=== PATIENT | female | born 1985 | race Caucasian/White ===

== ENCOUNTER 2017-04-08 22:24 | Emergency (ER) | payer MEDICAID ==
[2017-04-08 22:34] VITALS: BP 118/75
--- NOTE | 2017-04-08 23:23 | EDM.PDOC ---
ED HPI GENERAL MEDICAL PROBLEM - General Chief Complaint: Flank Pain Stated Complaint: POSS KIDNEY INFECTION Time Seen by Provider: 04/08/17 23:10 Source of Information: Reports: Patient, RN Notes Reviewed History Limitations: Reports: No Limitations - History of Present Illness INITIAL COMMENTS - FREE TEXT/NARRATIVE: The patient states that she has had dysuria, urinary urgency, and urinary frequency for the past week, and low back pain for about 2 hours. No recent fever, vomiting, or diarrhea, although she has had nausea and constipation. He states that she has had similar symptoms the past, due to a UTI. She states that she has been taking [id number] Azo for the past 2 days, without relief. The patient does not have a PCP. Flank Pain Score (Numeric/FACES): 8 - Related Data Allergies Allergy/AdvReac Type Severity Reaction Status Date / Time No Known Allergies Allergy Verified 01/22/16 08:59 Home Meds: Home Meds Levofloxacin [Levaquin] 250 mg PO Q24H #4 tablet 04/08/17 [Rx] Past Medical History HEENT History: Reports: Allergic Rhinitis Musculoskeletal History: Reports: Fracture (right femur) - Past Surgical History HEENT Surgical History: Reports: Adenoidectomy, Oral Surgery ([place] tooth extraction), Tonsillectomy Female Surgical History: Reports: D&C (x 4), Tubal Ligation Musculoskeletal Surgical History: Reports: ORIF (right femur) Social & Family History - Family History Family Medical History: Noncontributory - Tobacco Use Smoking Status *Q: Current Every Day Smoker Years of Tobacco use: 16 Packs/Tins Daily: 1 - Caffeine Use Caffeine Use: Reports: None - Alcohol Use Alcohol Use History: Yes Alcohol Use Frequency: Socially - Recreational Drug Use Recreational Drug Use: No - Living Situation & Occupation Living situation: Reports: , with Significant Other (Boyfriend), with Family (3 kids) 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) ED ROS GENERAL - Review of Systems Review Of Systems: See Below Constitutional: Reports: No Symptoms HEENT: Reports: Other (Recent hayfever symptoms) Respiratory: Reports: No Symptoms Cardiovascular: Reports: No Symptoms Endocrine: Reports: No Symptoms GI/Abdominal: Reports: No Symptoms : Reports: Dysuria (as per the HPI), Flank Pain (as per the HPI), Frequency ( as per the HPI), Urgency (as per the HPI) Musculoskeletal: Reports: No Symptoms Skin: Reports: No Symptoms Neurological: Reports: No Symptoms Psychiatric: Reports: No Symptoms Hematologic/Lymphatic: Reports: No Symptoms Immunologic: Reports: No Symptoms ED EXAM, RENAL/ - Physical Exam Exam: See Below Exam Limited By: No Limitations General Appearance: Alert, WD/WN, No Apparent Distress Eye Exam: Bilateral Eye: Normal Inspection Ears: Normal External Exam, Hearing Grossly Normal Nose: Normal Inspection, No Blood Throat/Mouth: Normal Inspection, Normal Lips, Normal Voice, No Airway Compromise Head: Atraumatic, Normocephalic Neck: Normal Inspection, Full Range of Motion Respiratory/Chest: No Respiratory Distress, Lungs Clear, Normal Breath Sounds, No Accessory Muscle Use Cardiovascular: Normal Peripheral Pulses, Regular Rate, Rhythm, No Gallop, No JVD, No Murmur, No Rub GI/Abdominal: Normal Bowel Sounds, Soft, Non-Tender, No Organomegaly, No Distention, No Abnormal Bruit, No Mass (Female) Exam: Deferred Rectal (Female) Exam: Deferred Back Exam: Normal Inspection, Full Range of Motion, CVA Tenderness (L) (mild), CVA Tenderness (R) (mild) Extremities: Normal Inspection, Normal Range of Motion, No Pedal Edema, Normal Capillary Refill Neurological: Alert, Oriented, Normal Cognition, No Motor/Sensory Deficits Psychiatric: Normal Affect Skin Exam: Warm, Dry, Intact, Normal Color, No Rash Lymphatic: No Adenopathy Course - Vital Signs Last Recorded V/S: Last Vital Signs Temp 36.6 C 04/08/17 22:31 Pulse 89 04/08/17 22:31 Resp 16 04/08/17 22:31 BP 118/75 04/08/17 22:31 Pulse Ox 96 04/08/17 22:31 - Orders/Labs/Meds Orders: Active Orders 24 hr Category Date Time Status CULTURE URINE [RM] Stat Lab 04/08/17 23:10 Received Labs: Laboratory Tests 04/08/17 Range/Units 22:45 Urine Color Cinda H (Yellow) Urine Appearance Turbid H (Clear) Urine pH 6.0 (5.0-8.0) Ur Specific [place] > or = 1.030 (1.005-1.030) Urine Protein 3+ H (Negative) Urine Glucose (UA) Negative (Negative) Urine Ketones Negative (Negative) Urine Occult Blood 3+ H (Negative) Urine Nitrite Positive H (Negative) Urine Bilirubin 1+ H (Negative) Urine Urobilinogen 1.0 (0.2-1.0) Ur Leukocyte Esterase 1+ H (Negative) Urine RBC 10-20 H (0-5) /hpf Urine WBC 50-75 H (0-5) /hpf Urine WBC Clumps Few (NOT SEEN) /hpf Ur Epithelial Cells 0-5 (0-5) /hpf Urine Bacteria Moderate H (FEW) /hpf Urine Mucus Few (FEW) /hpf Meds: Medications Discontinued Medications Generic Name Dose Route Start Last Admin Trade Name Freq PRN Reason Stop Dose Admin Levofloxacin 500 mg 04/08/17 23:37 04/08/17 23:50 Levaquin PO 04/08/17 23:38 500 mg ONETIME STA Administration - Re-Assessments/Exams Free Text/Narrative Re-Assessment/Exam: 04/08/17 23:39 The patient's urinalysis is consistent with a urinary tract infection. I have ordered a urine culture. While the patient does not have a fever, nausea, or vomiting, she does have flank pain and mild bilateral CVA tenderness, consistent with early pyelonephritis. Fluoroquinolones are the only oral antimicrobial recommended for the outpatient empirical treatment of acute uncomplicated pyelonephritis. I will start patient on oral Levaquin. Departure - Departure Time of Disposition: 23:47 Disposition: Home, Self-Care 01 Condition: Good Clinical Impression: Pyelonephritis - Discharge Information Prescriptions: Levofloxacin [Levaquin] 250 mg PO Q24H #4 tablet Instructions: Pyelonephritis, Adult, [id number] Referrals: PCP,None [Primary Care Provider] - Denia Espinoza PA-C [Physician Information Security Director] - Forms: ED Department Discharge Additional Instructions: You were seen in the emergency room for urinary burning, urgency, and frequency , along with low back pain. Workup in the ER included a urinalysis and urine culture. Your urine is consistent with a urinary tract infection. Because you have pain and tenderness in your back, you may have early pyelonephritis, an infection of the kidneys. You have been started on the antibiotic Levaquin. Take one tablet each evening, as prescribed. Finish the entire prescription unless told otherwise by a doctor. Stay adequately hydrated. You may take [id number] Azo, as directed on the label, to help with your urinary symptoms. Follow-up with Denia Espinoza in the clinic on 04/11/2017, for urine culture results, to make sure that you are on the right antibiotic. If any other problems, please do not hesitate to return to the ER. - My Orders Last 24 Hours: My Active Orders 04/08/17 23:10 CULTURE URINE [RM] Stat - Assessment/Plan Last 24 Hours: My Active Orders 04/08/17 23:10 CULTURE URINE [RM] Stat
[2017-04-08] MEDS ORDERED: Levofloxacin 500 MG Tab PO STA (23:37)
== END 2017-04-09 | disposition home or self-care (01) ==
LOC: JD.ED 22:24
DX: N12 Tubulo-interstitial nephritis, not specified as acute or chronic (principal); F17.210 Nicotine dependence, cigarettes, uncomplicated; Z98.890 Other specified postprocedural states; Z98.51 Tubal ligation status
CPT/HCPCS: 81001; 87086; 87088; 87186; 99284; A9270; 99283

== ENCOUNTER 2017-04-09 21:32 | Emergency (ER) | payer MEDICAID ==
[2017-04-09 21:43] VITALS: BP 101/68
[2017-04-09] MEDS ORDERED: Acetaminophen/HYDROcodone 325-5 MG Tab PO ONE (22:03)
--- NOTE | 2017-04-09 22:06 | EDM.PDOC ---
ED HPI GENERAL MEDICAL PROBLEM - General Chief Complaint: Genitourinary Problem Stated Complaint: SEVERE LOWER BACK PAIN Time Seen by Provider: 04/09/17 21:44 Source of Information: Reports: Patient, Family (), RN Notes Reviewed History Limitations: Reports: No Limitations - History of Present Illness INITIAL COMMENTS - FREE TEXT/NARRATIVE: The patient was seen by me in this ED last night with a complaint of dysuria, urinary urgency, and urinary frequency for the week prior, as well as low back pain for about 2 hours, at that time. She had not had any fever, vomiting, or diarrhea, although she did report nausea and constipation. Workup in the ER included a urinalysis, consistent with a UTI, and a urine culture was sent. Due to her flank pain and mild bilateral CVA tenderness, she was diagnosed with early pyelonephritis and started on oral Levaquin 500 mg. She was then discharged home with a prescription for Levaquin 250 mg that she was supposed to start tonight, although she reports that she has not. She was to follow-up with Denia Espinoza in the clinic. She now returns complaining of severe low back pain, worse on the right than the left. No fever or vomiting. The patient's states that he has to carry her to the bathroom, because she is in too much pain to go herself. Lower Back Pain Score (Numeric/FACES): 10 - Related Data Allergies Allergy/AdvReac Type Severity Reaction Status Date / Time No Known Allergies Allergy Verified 04/09/17 21:43 Home Meds: Home Meds Levofloxacin [Levaquin] 250 mg PO Q24H #4 tablet 04/08/17 [Rx] Past Medical History HEENT History: Reports: Allergic Rhinitis Musculoskeletal History: Reports: Fracture (right femur) - Past Surgical History HEENT Surgical History: Reports: Adenoidectomy, Oral Surgery ([place] teeth extraction), Tonsillectomy Female Surgical History: Reports: D&C (x 4), Tubal Ligation Musculoskeletal Surgical History: Reports: ORIF (right femur) Social & Family History - Family History Family Medical History: Noncontributory - Tobacco Use Smoking Status *Q: Current Every Day Smoker Years of Tobacco use: 16 Packs/Tins Daily: 1 - Caffeine Use Caffeine Use: Reports: None - Alcohol Use Alcohol Use History: Yes Days Per Week of Alcohol Use: 0 Alcohol Use Frequency: Socially - Recreational Drug Use Recreational Drug Use: No - Living Situation & Occupation Living situation: Reports: , with Significant Other (Boyfriend), with Family (3 kids) 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) ED ROS GENERAL - Review of Systems Review Of Systems: See Below Constitutional: Reports: No Symptoms HEENT: Reports: No Symptoms Respiratory: Reports: No Symptoms Cardiovascular: Reports: No Symptoms Endocrine: Reports: No Symptoms GI/Abdominal: Reports: No Symptoms : Reports: No Symptoms Musculoskeletal: Reports: No Symptoms Skin: Reports: No Symptoms Neurological: Reports: No Symptoms Psychiatric: Reports: No Symptoms Hematologic/Lymphatic: Reports: No Symptoms Immunologic: Reports: No Symptoms ED EXAM, RENAL/ - Physical Exam Exam: See Below Exam Limited By: No Limitations General Appearance: Alert, WD/WN, Mild Distress (appears uncomfortable) Eye Exam: Bilateral Eye: Normal Inspection Ears: Normal External Exam, Hearing Grossly Normal Nose: Normal Inspection, No Blood Throat/Mouth: Normal Inspection, Normal Lips, Normal Voice, No Airway Compromise Head: Atraumatic, Normocephalic Neck: Normal Inspection, Full Range of Motion Respiratory/Chest: No Respiratory Distress, Lungs Clear, Normal Breath Sounds, No Accessory Muscle Use Cardiovascular: Normal Peripheral Pulses, Regular Rate, Rhythm, No Gallop, No JVD, No Murmur, No Rub GI/Abdominal: Normal Bowel Sounds, Soft, Non-Tender, No Organomegaly, No Distention, No Abnormal Bruit, No Mass (Female) Exam: Deferred Rectal (Female) Exam: Deferred Back Exam: Normal Inspection, Full Range of Motion, CVA Tenderness (L), CVA Tenderness (R) Extremities: Normal Inspection, Normal Range of Motion, No Pedal Edema, Normal Capillary Refill Neurological: Alert, Oriented, Normal Cognition, No Motor/Sensory Deficits Psychiatric: Normal Affect Skin Exam: Warm, Dry, Intact, Normal Color, No Rash Lymphatic: No Adenopathy Course - Vital Signs Last Recorded V/S: Last Vital Signs Temp 36.9 C 04/09/17 21:40 Pulse 84 04/09/17 21:40 Resp 18 04/09/17 21:40 BP 101/68 04/09/17 21:40 Pulse Ox 98 04/09/17 21:40 - Orders/Labs/Meds Labs: Laboratory Tests 04/09/17 Range/Units 22:20 Urine Color Yellow (Yellow) Urine Appearance Clear (Clear) Urine pH 6.0 (5.0-8.0) Ur Specific [place] > or = 1.030 (1.005-1.030) Urine Protein Negative (Negative) Urine Glucose (UA) Negative (Negative) Urine Ketones 1+ H (Negative) Urine Occult Blood 2+ H (Negative) Urine Nitrite Negative (Negative) Urine Bilirubin Negative (Negative) Urine Urobilinogen 0.2 (0.2-1.0) Ur Leukocyte Esterase Negative (Negative) Urine RBC 5-10 H (0-5) /hpf Urine WBC 0-5 (0-5) /hpf Ur Epithelial Cells 5-10 H (0-5) /hpf Urine Bacteria Many H (FEW) /hpf Urine Mucus Many H (FEW) /hpf Meds: Medications Discontinued Medications Generic Name Dose Route Start Last Admin Trade Name Freq PRN Reason Stop Dose Admin Hydrocodone Bitart/Acetaminophen 2 tab 04/09/17 22:03 04/09/17 22:09 [place] 325-5 Mg PO 04/09/17 22:04 2 tab ONETIME ONE Administration - Re-Assessments/Exams Free Text/Narrative Re-Assessment/Exam: 04/09/17 22:04 The patient's urine culture from last night is growing gram-negative rods, but the ID and stability are still pending. I have ordered a repeat urinalysis; if the Levaquin is effective, the dose she received last night should essentially sterilize her urine, although able take several days to eradicate the infection itself. If prabhakar's urinalysis looks largely unchanged from last nights, that would be evidence that the Levaquin is ineffective, and we would need to switch her to something else. 04/09/17 23:05 Prabhakar's urinalysis demonstrates significant improvement from last night. Her urine is now yellow instead of tori, clear instead of turbid. The previous 3+ protein is now negative. The previous 3+ occult blood is now 2+. The previously positive nitrite is now negative. The previously 1+ leukocyte Estrace is now negative. The urine RBCs have decreased from 10-20 to 5-10. The previous 50-75 WBCs are now 0-5. The urine bacteria have increased from moderate to many. Overall, I believe this indicates efficacy of the Levaquin, and I am not recommending any change at this time. I ordered 2 tablets of [place], but for discharge purposes, I believe ibuprofen would be appropriate. Departure - Departure Time of Disposition: 23:11 Disposition: Home, Self-Care 01 Condition: Good Clinical Impression: Pyelonephritis - Discharge Information Referrals: PCP,None [Primary Care Provider] - Denia Espinoza PA-C [Physician Time Study Clerk] - Forms: ED Department Discharge Additional Instructions: You were seen in the emergency room for lower back pain associated with your previously diagnosed pyelonephritis. Workup in the ER included a repeat urinalysis, which shows significant improvement, indicating that you are on the correct antibiotic. We recommend that you continue to take the previously prescribed Levaquin, one tablet each evening, starting tonight. As before, finish the entire prescription unless told otherwise by a doctor. You may take mdyn-biw-xharbuh Azo, as directed on the label, to help with your urinary symptoms. Take giwe-wct-[id number] ibuprofen 2-3 tablets (400-600 mg) every 8 hours, with food, as needed for discomfort. Stay adequately hydrated. Follow-up with Denia Espinoza in the clinic this coming 04/11/2017, to check on the urine culture results, to confirm that you are on the correct antibiotic. If any other problems, please do not hesitate to return to the ER.
== END 2017-04-09 23:20 | disposition home or self-care (01) ==
LOC: JD.ED 21:32
DX: N12 Tubulo-interstitial nephritis, not specified as acute or chronic (principal); F17.210 Nicotine dependence, cigarettes, uncomplicated; Z98.890 Other specified postprocedural states; Z98.51 Tubal ligation status
CPT/HCPCS: 81001; 99284; A9270; 99283

== ENCOUNTER 2017-04-23 00:10 | Emergency (ER) | payer MEDICAID ==
[2017-04-23 00:20] VITALS: BP 124/60
[2017-04-23] MEDS ORDERED: Acetaminophen/HYDROcodone 325-5 MG Tab PO ONE (00:57)
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
== END 2017-04-23 01:14 | disposition home or self-care (01) ==
LOC: JD.ED 00:10
DX: S40.012A Contusion of left shoulder, initial encounter (principal); S50.01XA Contusion of right elbow, initial encounter; S70.12XA Contusion of left thigh, initial encounter; S70.11XA Contusion of right thigh, initial encounter; S10.93XA Contusion of unspecified part of neck, initial encounter; F17.210 Nicotine dependence, cigarettes, uncomplicated; Z98.51 Tubal ligation status; Z98.890 Other specified postprocedural states; Y04.0XXA Assault by unarmed brawl or fight, initial encounter
CPT/HCPCS: 99284; A9270; 99283

== ENCOUNTER 2018-02-20 18:14 | Emergency (ER) | payer MEDICAID ==
[2018-02-20 18:32] VITALS: BP 106/67
[2018-02-20] MEDS ORDERED: Ondansetron 4 MG/2 ML SDV IVPUSH ONE (18:38)
[2018-02-20] MEDS ORDERED: Sodium Chloride 0.9% 10 ML Syringe FLUSH PRN (18:38)
[2018-02-20] MEDS ORDERED: Ketorolac 30 MG/ML SDV IVPUSH ONE (18:39)
[2018-02-20] MEDS ORDERED: Sodium Chloride 0.9% 1,000 ML IV SCH (18:45)
--- NOTE | 2018-02-20 19:27 | EDM.PDOC ---
ED HPI GENERAL MEDICAL PROBLEM - General Chief Complaint: Genitourinary Problem Stated Complaint: KIDNEY ISSUES-SENT FROM WALK IN Time Seen by Provider: 02/20/18 18:35 Source of Information: Reports: Patient History Limitations: Reports: No Limitations - History of Present Illness INITIAL COMMENTS - FREE TEXT/NARRATIVE: The patient presents with bilateral low back pain, dysuria and frequency. This all started yesterday. She has no fever, chills, cough, chest pain or shortness of breath. She has some pain that raps around to her abdomen. She has a history of UTIs, pyelonephritis and kidney stones. She had a tubel ligation. She did not fall and she has no numbness or weakness in her legs. Onset: Gradual Duration: Day(s): (2) Location: Reports: Back Quality: Reports: Sharp Severity: Severe Improves with: Reports: None Worsens with: Reports: None Associated Symptoms: Denies: Chest Pain, Cough, Fever/Chills, Headaches, Nausea/ Vomiting, Shortness of Breath Lower Back Pain Score (Numeric/FACES): 8 - Related Data Allergies Allergy/AdvReac Type Severity Reaction Status Date / Time No Known Allergies Allergy Verified 02/20/18 18:24 Home Meds: Home Meds Cyclobenzaprine [Flexeril] 10 mg PO TID PRN #20 tab 02/20/18 [Rx] Escitalopram [Lexapro] 20 mg PO DAILY 02/20/18 [History] Hydrocodone/Acetaminophen [Hydrocodon-Acetaminophen 5-325] 1 - 2 each PO Q6HR PRN #20 tablet 02/20/18 [Rx] LORazepam [Ativan] 0.5 mg PO QID PRN 02/20/18 [History] Past Medical History HEENT History: Reports: Allergic Rhinitis Genitourinary History: Reports: UTI, Recurrent 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: Musculoskeletal History: Reports: Fracture Other Musculoskeletal History: Right femur hardware Neurological History: Reports: Migraines Psychiatric History: Reports: Anxiety, Depression - Past Surgical History HEENT Surgical History: Reports: Adenoidectomy, Oral Surgery, Tonsillectomy Female Surgical History: Reports: D&C, Tubal Ligation Musculoskeletal Surgical History: Reports: ORIF Social & Family History - Family History Family Medical History: Noncontributory - Tobacco Use Smoking Status *Q: Current Every Day Smoker Years of Tobacco use: 13 Packs/Tins Daily: 1 - Caffeine Use Caffeine Use: Reports: None - Recreational Drug Use Recreational Drug Use: No - Living Situation & Occupation Living situation: Reports: , with Significant Other (Boyfriend), with Family (3 kids) Occupation: Unemployed ED ROS GENERAL - Review of Systems Review Of Systems: See Below Constitutional: Reports: No Symptoms HEENT: Reports: No Symptoms Respiratory: Reports: No Symptoms Cardiovascular: Reports: No Symptoms Endocrine: Reports: No Symptoms GI/Abdominal: Reports: Abdominal Pain, Nausea. Denies: Diarrhea, Vomiting : Reports: Dysuria, Flank Pain, Frequency Musculoskeletal: Reports: No Symptoms Skin: Reports: No Symptoms ED EXAM, GI/ABD - Physical Exam Exam: See Below Exam Limited By: No Limitations General Appearance: Alert, No Apparent Distress Ears: Normal External Exam Nose: Normal Inspection Head: Atraumatic, Normocephalic Neck: Normal Inspection Respiratory/Chest: No Respiratory Distress, Lungs Clear, Normal Breath Sounds Cardiovascular: Regular Rate, Rhythm, No Edema, No Murmur GI/Abdominal Exam: Soft, Non-Tender, No Organomegaly, No Mass Back Exam: CVA Tenderness (L), CVA Tenderness (R) Extremities: Normal Inspection Neurological: Alert, Oriented, No Motor/Sensory Deficits Course - Vital Signs Last Recorded V/S: Last Vital Signs Temp 97.1 F 02/20/18 18:29 Pulse 106 H 02/20/18 18:29 Resp 12 02/20/18 18:29 BP 106/67 02/20/18 18:29 Pulse Ox 100 02/20/18 18:29 - Orders/Labs/Meds Orders: Active Orders 24 hr Category Date Time Status Peripheral IV Care [RC] . DIRECTED Care 02/20/18 18:39 Active URINALYSIS W/MICROSCOPIC [UA W/MICROSCOPIC] [URIN] Stat Lab 02/20/18 18:30 Ordered Sodium Chloride 0.9% [Normal Saline] 1,000 ml Med 02/20/18 18:45 Active IV ASDIRECTED Sodium Chloride 0.9% [Saline Flush] Med 02/20/18 18:38 Active 10 ml FLUSH ASDIRECTED PRN ED Antiemetic Medication Reflex [OM.PC] Stat Oth 02/20/18 18:38 Ordered Peripheral IV Insertion Adult [OM.PC] Stat Oth 02/20/18 18:38 Ordered Medication Orders Sodium Chloride (Normal Saline) 1,000 mls @ 125 mls/hr IV ASDIRECTED NELSON Last Admin: 02/20/18 18:51 Dose: 125 mls/hr Sodium Chloride (Saline Flush) 10 ml FLUSH ASDIRECTED PRN PRN Reason: Keep Vein Open Last Admin: 02/20/18 18:55 Dose: 10 ml Labs: Laboratory Tests 02/20/18 02/20/18 02/20/18 Range/Units 18:30 18:30 18:30 WBC 17.32 H (3.98-10.04) K/mm3 RBC 4.90 (3.98-5.22) M/mm3 Hgb 14.1 (11.2-15.7) gm/L Hct 43.0 (34.1-44.9) % MCV 87.8 (79.4-94.8) fl MCH 28.8 (25.6-32.2) pg MCHC 32.8 (32.2-35.5) g/dl RDW Std Deviation 40.0 (36.4-46.3) fL Plt Count 350 (182-369) K/mm3 MPV 8.6 L (9.4-12.3) fl Neut % (Auto) 60.7 (34.0-71.1) % Lymph % (Auto) 26.5 (19.3-51.7) % Bent % (Auto) 9.1 (4.7-12.5) % Eos % (Auto) 3.1 (0.7-5.8) Baso % (Auto) 0.3 (0.1-1.2) % Neut # (Auto) 10.51 H (1.56-6.13) K/mm3 Lymph # (Auto) 4.59 H (1.18-3.74) K/mm3 Bent # (Auto) 1.57 H (0.24-0.36) K/mm3 Eos # (Auto) 0.54 H (0.04-0.36) K/mm3 Baso # (Auto) 0.06 (0.01-0.08) K/mm3 Manual Slide Review Normal smear Sodium 138 (136-145) mEq/L Potassium 3.6 (3.5-5.1) mEq/L Chloride 104 (98-107) mEq/L Carbon Dioxide 25 (21-32) mEq/L Anion Gap 12.6 (5-15) BUN 13 (7-18) mg/dL Creatinine 0.7 (0.55-1.02) mg/dL Est Cr Clr Drug Dosing 94.13 mL/min Estimated GFR (MDRD) > 60 (>60) mL/min BUN/Creatinine Ratio 18.6 H (14-18) Glucose 84 (74-106) mg/dL Calcium 8.8 (8.5-10.1) mg/dL Total Bilirubin 0.2 (0.2-1.0) mg/dL AST 9 L (15-37) U/L ALT 18 (14-59) U/L Alkaline Phosphatase 55 (46-116) U/L Total Protein 7.1 (6.4-8.2) g/dl Albumin 3.6 (3.4-5.0) g/dl Globulin 3.5 gm/dL Albumin/Globulin Ratio 1.0 (1-2) HCG, Qual (NEGATIVE) Urine Color Dark yellow (Yellow) Urine Appearance Cloudy H (Clear) Urine pH 5.5 (5.0-8.0) Ur Specific Cascade > or = 1.030 (1.005-1.030) Urine Protein Negative (Negative) Urine Glucose (UA) Negative (Negative) Urine Ketones Negative (Negative) Urine Occult Blood Trace-lysed H (Negative) Urine Nitrite Negative (Negative) Urine Bilirubin 1+ H (Negative) Urine Urobilinogen 0.2 (0.2-1.0) Ur Leukocyte Esterase Negative (Negative) Urine RBC 0-5 (0-5) /hpf Urine WBC 0-5 (0-5) /hpf Ur Epithelial Cells >100 H (0-5) /hpf Urine Bacteria Few (FEW) /hpf Urine Mucus Few (FEW) /hpf 02/20/18 Range/Units 18:30 WBC (3.98-10.04) K/mm3 RBC (3.98-5.22) M/mm3 Hgb (11.2-15.7) gm/L Hct (34.1-44.9) % MCV (79.4-94.8) fl MCH (25.6-32.2) pg MCHC (32.2-35.5) g/dl RDW Std Deviation (36.4-46.3) fL Plt Count (182-369) K/mm3 MPV (9.4-12.3) fl Neut % (Auto) (34.0-71.1) % Lymph % (Auto) (19.3-51.7) % Bent % (Auto) (4.7-12.5) % Eos % (Auto) (0.7-5.8) Baso % (Auto) (0.1-1.2) % Neut # (Auto) (1.56-6.13) K/mm3 Lymph # (Auto) (1.18-3.74) K/mm3 Bent # (Auto) (0.24-0.36) K/mm3 Eos # (Auto) (0.04-0.36) K/mm3 Baso # (Auto) (0.01-0.08) K/mm3 Manual Slide Review Sodium (136-145) mEq/L Potassium (3.5-5.1) mEq/L Chloride (98-107) mEq/L Carbon Dioxide (21-32) mEq/L Anion Gap (5-15) BUN (7-18) mg/dL Creatinine (0.55-1.02) mg/dL Est Cr Clr Drug Dosing mL/min Estimated GFR (MDRD) (>60) mL/min BUN/Creatinine Ratio (14-18) Glucose (74-106) mg/dL Calcium (8.5-10.1) mg/dL Total Bilirubin (0.2-1.0) mg/dL AST (15-37) U/L ALT (14-59) U/L Alkaline Phosphatase (46-116) U/L Total Protein (6.4-8.2) g/dl Albumin (3.4-5.0) g/dl Globulin gm/dL Albumin/Globulin Ratio (1-2) HCG, Qual Negative (NEGATIVE) Urine Color (Yellow) Urine Appearance (Clear) Urine pH (5.0-8.0) Ur Specific Cascade (1.005-1.030) Urine Protein (Negative) Urine Glucose (UA) (Negative) Urine Ketones (Negative) Urine Occult Blood (Negative) Urine Nitrite (Negative) Urine Bilirubin (Negative) Urine Urobilinogen (0.2-1.0) Ur Leukocyte Esterase (Negative) Urine RBC (0-5) /hpf Urine WBC (0-5) /hpf Ur Epithelial Cells (0-5) /hpf Urine Bacteria (FEW) /hpf Urine Mucus (FEW) /hpf Meds: Medications Generic Name Dose Route Start Last Admin Trade Name Freq PRN Reason Stop Dose Admin Sodium Chloride 1,000 mls @ 125 mls/hr 02/20/18 18:45 02/20/18 18:51 Normal Saline IV 125 mls/hr ASDIRECTED NELSON Administration Sodium Chloride 10 ml 02/20/18 18:38 02/20/18 18:55 Saline Flush FLUSH 10 ml ASDIRECTED PRN Administration Keep Vein Open Discontinued Medications Generic Name Dose Route Start Last Admin Trade Name Freq PRN Reason Stop Dose Admin Ketorolac Tromethamine 30 mg 02/20/18 18:39 02/20/18 18:54 Toradol IVPUSH 02/20/18 18:40 30 mg ONETIME ONE Administration Ondansetron HCl 4 mg 02/20/18 18:38 02/20/18 18:53 Zofran IVPUSH 02/20/18 18:39 4 mg ONETIME ONE Administration - Re-Assessments/Exams Free Text/Narrative Re-Assessment/Exam: 02/20/18 19:25 I ordered an IV NS at 125mL/hr, zofran 4mg IV, toradol 30mg IV, labs, and UA. Her UA shows no UTI but she does have some blood. I have added a CT of her abdomen and pelvis without contrast. 02/20/18 19:51 Her WBC was elevated at 17.32. Her CMP looks good. Her CT shows a small nonobstructing stone within the lower right kidney. No ureteral dilatation of ureteral calculi are seen. Mild increased stool within the colon. She does not have pyelo or a stone. I feel she does have low back pain. I will get her on something for that. Departure - Departure Time of Disposition: 19:55 Disposition: Home, Self-Care 01 Condition: Good Clinical Impression: Low back pain Qualifiers: Chronicity: acute Back pain laterality: bilateral Sciatica presence: without sciatica Qualified Code(s): M54.5 - Low back pain Leukocytosis Qualifiers: Leukocytosis type: unspecified Qualified Code(s): D72.829 - Elevated white blood cell count, unspecified - Discharge Information Prescriptions: Hydrocodone/Acetaminophen [Hydrocodon-Acetaminophen 5-325] 1 - 2 each PO Q6HR PRN #20 tablet PRN Reason: Pain Cyclobenzaprine [Flexeril] 10 mg PO TID PRN #20 tab PRN Reason: Pain Referrals: Vishnu Howard MD [Primary Care Provider] - 1 Week Forms: ED Department Discharge Additional Instructions: Take the medication as prescribed. Avoid doing any heavy lifting for the next few days but do not lay around. Movement is good. Please return if you are worse. Follow up with Dr Roach to have your WBC checked. It was elevated today. - My Orders Last 24 Hours: My Active Orders 02/20/18 18:30 URINALYSIS W/MICROSCOPIC [UA W/MICROSCOPIC] [URIN] Stat 02/20/18 18:38 Sodium Chloride 0.9% [Saline Flush] 10 ml FLUSH ASDIRECTED PRN ED Antiemetic Medication Reflex [OM.PC] Stat Peripheral IV Insertion Adult [OM.PC] Stat 02/20/18 18:39 Peripheral IV Care [RC] . DIRECTED 02/20/18 18:45 Sodium Chloride 0.9% [Normal Saline] 1,000 ml IV ASDIRECTED - Assessment/Plan Last 24 Hours: My Active Orders 02/20/18 18:30 URINALYSIS W/MICROSCOPIC [UA W/MICROSCOPIC] [URIN] Stat 02/20/18 18:38 Sodium Chloride 0.9% [Saline Flush] 10 ml FLUSH ASDIRECTED PRN ED Antiemetic Medication Reflex [OM.PC] Stat Peripheral IV Insertion Adult [OM.PC] Stat 02/20/18 18:39 Peripheral IV Care [RC] . DIRECTED 02/20/18 18:45 Sodium Chloride 0.9% [Normal Saline] 1,000 ml IV ASDIRECTED
--- NOTE | 2018-02-20 19:43 | CT ---
CT abdomen and pelvis Technique: Multiple axial sections were obtained from above the kidneys inferiorly to the pubic symphysis. Intravenous and oral contrast were not utilized. Study has been performed as a ureteral stone protocol. Comparison: Prior CT abdomen and pelvis exam performed with contrast dated 08/02/14. Findings: Small nonobstructing stone is noted within the lower right kidney measuring 3 mm. No ureteral dilatation or ureteral stone is seen. Visualized portions of the noncontrast liver and spleen appears within normal limits. Gallbladder contains no calcified gallstones. Pancreas appears within normal limits. Adrenal glands show no nodule. Aorta has no aneurysm. No retroperitoneal adenopathy or mesenteric abnormalities are seen. No pelvic mass or adenopathy is seen. Appendix not well seen but no findings of appendicitis are noted. Mild increased stool is seen throughout colon. Multiple calcifications are identified within the pelvis which are felt compatible with phleboliths. Bone window settings were reviewed which appear within normal limits for the patient's age. Impression: 1. Small nonobstructing stone within the lower right kidney. 2. No ureteral dilatation or ureteral calculi are seen. 3. Mild increased stool within the colon. 4. Other portions of the noncontrast CT study of the abdomen and pelvis performed as a ureteral stone protocol appear within normal limits. Diagnostic code #2
== END 2018-02-20 20:03 | disposition home or self-care (01) ==
LOC: JD.ED 18:14
DX: M54.5 Low back pain (principal); D72.829 Elevated white blood cell count, unspecified; F17.210 Nicotine dependence, cigarettes, uncomplicated
CPT/HCPCS: 36415; 74176; 80053; 81001; 84703; 85025; 96361; 96374; 96375; 99284; J1885; J2405; J7040; J7050

== ENCOUNTER 2018-11-27 19:04 | Emergency (ER) | payer MEDICAID ==
[2018-11-27 19:40] VITALS: BP 102/71
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
--- NOTE | 2018-11-28 15:18 | CR ---
Right shoulder: Three views of the right shoulder were obtained. Comparison: No prior right shoulder imaging. Glenohumeral joint and acromioclavicular joint appear within normal limits. Very small calcification is identified within the acromioclavicular joint superiorly which is incidental. No acute fracture, dislocation or other bony abnormality is identified. Impression: 1. Incidental finding. Nothing acute is identified on right shoulder study. Diagnostic code #2
== END 2018-11-27 20:50 | disposition home or self-care (01) ==
LOC: JD.ED 19:04
DX: S40.011A Contusion of right shoulder, initial encounter (principal); F17.210 Nicotine dependence, cigarettes, uncomplicated; V59.9XXA Occupant (driver) (passenger) of pick-up truck or van injured in unspecified traffic accident, initial encounter
CPT/HCPCS: 73030-26-RT; 73030-RT; 99282; 99284-25

== ENCOUNTER 2019-02-24 13:13 | Emergency (ER) | payer MEDICAID ==
[2019-02-24 13:28] VITALS: BP 97/68
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
[2019-02-24 15:14] LABS: ACETAMINOPHEN 0 ug/mL (10-30)
== END 2019-02-24 20:35 ==
LOC: JD.ED 13:13
DX: S60.812A Abrasion of left wrist, initial encounter (principal); S20.112A Abrasion of breast, left breast, initial encounter; F32.9 Major depressive disorder, single episode, unspecified; F41.9 Anxiety disorder, unspecified; F15.10 Other stimulant abuse, uncomplicated; X83.8XXA Intentional self-harm by other specified means, initial encounter; Z79.899 Other long term (current) drug therapy
CPT/HCPCS: 36415; 80053; 80306; 81025; 84443; 85007; 85027; 93005; 99285; G0480; 93010; 99283

== ENCOUNTER 2019-07-20 23:15 | Emergency (ER) | payer MEDICAID ==
[2019-07-20 23:24] VITALS: BP 103/48; PULSE 76
== END 2019-07-21 01:38 | disposition left against medical advice (07) ==
LOC: JD.ED 23:15
DX: Z53.21 Procedure and treatment not carried out due to patient leaving prior to being seen by health care provider (principal)
CPT/HCPCS: 99283

== ENCOUNTER 2019-08-23 16:37 | Emergency (ER) | payer SELFPAY ==
[2019-08-23 16:46] VITALS: BP 110/70
--- NOTE | 2019-08-23 16:56 | EDM.PDOC ---
ED HPI GENERAL MEDICAL PROBLEM - General Chief Complaint: Respiratory Problem Stated Complaint: HIGH BLOOD PRESSURE Time Seen by Provider: 08/23/19 16:48 - History of Present Illness INITIAL COMMENTS - FREE TEXT/NARRATIVE: 33-year-old female sent in from the walk in clinic because she had a cough and her blood pressure was low. The patient has a cough that seems to be getting worse for the most part is nonproductive occasionally she brings up some off-colored sputum but this is fairly rare. The patient does smoke. The patient's blood pressure seems to be at the low side of normal however she's not having any symptoms associated with this. And I suspect it's probably a normal variant for her, I have reviewed her last couple of visits and this is the range for her blood pressure. . Patient states about a week ago she had a head cold and this moved into her lungs. The patient smokes and she's been encouraged to quit. Chest Pain Score (Numeric/FACES): 9 - Related Data Allergies Allergy/AdvReac Type Severity Reaction Status Date / Time paroxetine [From Paxil] AdvReac Irritabilit Verified 08/23/19 16:46 y Home Meds: Home Meds . [No Known Home Meds] 07/20/19 [History] Past Medical History HEENT History: Reports: Allergic Rhinitis Cardiovascular History: Reports: Heart Murmur Genitourinary History: Reports: Renal Calculus [employer]IR History: Reports: , Spontaneous Musculoskeletal History: Reports: Fracture Other Musculoskeletal History: femur fx right leg Neurological History: Reports: Migraines Psychiatric History: Reports: Addiction, Anxiety, Depression, Suicide Attempt - Past Surgical History HEENT Surgical History: Reports: Adenoidectomy, Oral Surgery, Tonsillectomy Female Surgical History: Reports: D&C, Tubal Ligation Musculoskeletal Surgical History: Reports: ORIF, Other (See Below) Other Musculoskeletal Surgeries/Procedures:: fx to femur with pin and rods placed Social & Family History - Family History Family Medical History: Noncontributory - Tobacco Use Smoking Status *Q: Current Every Day Smoker Years of Tobacco use: 20 Packs/Tins Daily: 1 - Caffeine Use Caffeine Use: Reports: Coffee, Energy Drinks, Soda - Recreational Drug Use Recreational Drug Use: No - Living Situation & Occupation Living situation: Reports: , with Significant Other (Boyfriend) Occupation: Unemployed ED ROS GENERAL - Review of Systems Review Of Systems: See Below Constitutional: Reports: No Symptoms HEENT: Reports: No Symptoms Respiratory: Reports: Cough. Denies: No Symptoms, Shortness of Breath, Wheezing , Pleuritic Chest Pain Cardiovascular: Reports: No Symptoms Endocrine: Reports: No Symptoms GI/Abdominal: Reports: No Symptoms : Reports: No Symptoms Musculoskeletal: Reports: No Symptoms Skin: Reports: No Symptoms Neurological: Reports: No Symptoms ED EXAM, GENERAL - Physical Exam Exam: See Below Exam Limited By: No Limitations General Appearance: Alert, No Apparent Distress Ears: Normal External Exam, Normal Canal, Hearing Grossly Normal, Normal TMs Nose: Normal Inspection, Normal Mucosa, No Blood Throat/Mouth: Normal Inspection, Normal Lips, Normal Teeth, Normal Gums, Normal Oropharynx, Normal Voice, No Airway Compromise Head: Atraumatic, Normocephalic Neck: Normal Inspection, Supple, Non-Tender, Full Range of Motion. No: Lymphadenopathy (L), Lymphadenopathy (R) Respiratory/Chest: No Respiratory Distress, Lungs Clear, Normal Breath Sounds Cardiovascular: Regular Rate, Rhythm, No Edema, No Murmur GI/Abdominal: Normal Bowel Sounds, Soft, Non-Tender Back Exam: Normal Inspection. No: CVA Tenderness (L), CVA Tenderness (R) Course - Vital Signs Last Recorded V/S: Last Vital Signs Temp 36.4 C 08/23/19 16:45 Pulse 72 08/23/19 17:38 Resp 18 08/23/19 16:45 BP 110/70 08/23/19 16:45 Pulse Ox 100 08/23/19 16:45 - Orders/Labs/Meds Orders: Active Orders 24 hr Category Date Time Status RT Post Treatment Assessment [RC] Click to Edit Care 08/23/19 16:58 Active RT Pre-Treatment Assessment [RC] Click to Edit Care 08/23/19 16:58 Active Chest 2V [CR] Stat Exams 08/23/19 16:56 Taken Meds: Medications Discontinued Medications Generic Name Dose Route Start Last Admin Trade Name Freq PRN Reason Stop Dose Admin Albuterol 0 gm 08/23/19 16:58 08/23/19 17:34 Proventil Hfa INH 08/23/19 16:59 2 puff ONETIME ONE Administration - Re-Assessments/Exams Free Text/Narrative Re-Assessment/Exam: 08/23/19 17:52 Chest x-ray is entirely normal from a cardiopulmonary standpoint however she is demonstrating increased kyphosis in her bones look a little osteopenic the patient should follow-up with her regular physician to further discuss this and see if further testing is warranted also discussed the importance of quitting smoking the patient will use albuterol inhaler 2 puffs every 4 hours while awake. Departure - Departure Time of Disposition: 17:53 Disposition: Home, Self-Care 01 Clinical Impression: Bronchitis - Discharge Information Instructions: Steps to Quit Smoking, [id number], Acute Bronchitis, Adult, [id number] Referrals: Casi Hwang MD [Primary Care Provider] - Forms: ED Department Discharge Additional Instructions: Return to emergency room if any questions problems or worsening symptoms. Quit smoking! Use the albuterol 2 puffs every 4 hours while awake. Follow-up in the clinic in a couple weeks, sooner if needed discuss therapies to quit smoking and overall bone health. - My Orders Last 24 Hours: My Active Orders 08/23/19 16:56 Chest 2V [CR] Stat 08/23/19 16:58 RT Post Treatment Assessment [RC] Click to Edit RT Pre-Treatment Assessment [RC] Click to Edit - Assessment/Plan Last 24 Hours: My Active Orders 08/23/19 16:56 Chest 2V [CR] Stat 08/23/19 16:58 RT Post Treatment Assessment [RC] Click to Edit RT Pre-Treatment Assessment [RC] Click to Edit
[2019-08-23] MEDS ORDERED: Albuterol 6.7 GM Inhaler INH ONE (16:58)
[2019-08-23 17:38] VITALS: PULSE 72
--- NOTE | 2019-08-23 19:09 | CR ---
Chest: Two views of the chest were obtained. Comparison: No prior chest imaging. Heart size and mediastinum are normal. Lungs are clear. Mild scoliosis is noted within the spine. Impression: 1. Nothing acute is seen on two-view chest x-ray. Diagnostic code #2
== END 2019-08-23 18:02 | disposition home or self-care (01) ==
LOC: JD.ED 16:37
DX: J40 Bronchitis, not specified as acute or chronic (principal); F17.210 Nicotine dependence, cigarettes, uncomplicated; Z88.8 Allergy status to other drugs, medicaments and biological substances
CPT/HCPCS: 71046; 99285; A9270; 99283

== ENCOUNTER 2020-02-01 03:06 | Emergency (ER) | payer SELFPAY ==
[2020-02-01 03:16] VITALS: BP 102/81; PULSE 80
--- NOTE | 2020-02-01 03:35 | EDM.PDOC ---
ED HPI GENERAL MEDICAL PROBLEM - General Chief Complaint: Abdominal Pain Stated Complaint: SIDE PAIN Time Seen by Provider: 02/01/20 04:10 Source of Information: Reports: Patient History Limitations: Reports: No Limitations - History of Present Illness INITIAL COMMENTS - FREE TEXT/NARRATIVE: TRIAGE NOTE -- Pt states that two days ago she took meth and GHB for the first time after being sober. Pt states she was throwing all day friday and then passed out. This morning she started having more nausea and pain on the L side. [ End ] Patient is having pain on the left side of her abdomen. This started a short while ago perhaps in the past hour or so. 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 On my exam denied nausea vomiting or diarrhea or fever. Has not taken any medication or tried any measure to moderate symptoms. Risk factors consist of IV drug abuse as well as cigarette smoking. Left Abdomen Pain Score (Numeric/FACES): 8 - Related Data Allergies Allergy/AdvReac Type Severity Reaction Status Date / Time paroxetine [From Paxil] AdvReac Irritabilit Verified 02/01/20 03:17 y Home Meds: Home Meds polyethylene glycoL 3350 [MiraLAX] 17 gm PO BEDTIME #10 packet 02/01/20 [Rx] Past Medical History HEENT History: Reports: Allergic Rhinitis Cardiovascular History: Reports: Heart Murmur Respiratory History: Reports: Asthma Genitourinary History: Reports: Renal Calculus [employer] History: Reports: , Spontaneous Musculoskeletal History: Reports: Fracture Other Musculoskeletal History: femur fx right leg Neurological History: Reports: Migraines Psychiatric History: Reports: Addiction, Anxiety, Depression, Suicide Attempt - Past Surgical History HEENT Surgical History: Reports: Adenoidectomy, Oral Surgery, Tonsillectomy Female Surgical History: Reports: D&C, Tubal Ligation Musculoskeletal Surgical History: Reports: ORIF, Other (See Below) Other Musculoskeletal Surgeries/Procedures:: fx to femur with pin and rods placed Social & Family History - Family History Family Medical History: Noncontributory - Tobacco Use Smoking Status *Q: Current Every Day Smoker Years of Tobacco use: 10 Packs/Tins Daily: 1 - Caffeine Use Caffeine Use: Reports: None - Recreational Drug Use Recreational Drug Use: Yes Recreational Drug Type: Reports: Methamphetamine, Other (see below) Other Recreational Drug Type: GHB Recreational Drug Use Frequency: Monthly - Living Situation & Occupation Living situation: Reports: , with Significant Other (Boyfriend) Occupation: Unemployed ED ROS GENERAL - Review of Systems Review Of Systems: Comprehensive ROS is negative, except as noted in HPI. ED EXAM, GI/ABD - Physical Exam Exam: See Below Exam Limited By: No Limitations General Appearance: Alert, WD/WN, No Apparent Distress Eyes: Bilateral: EOMI Ears: Normal External Exam Nose: Normal Inspection Throat/Mouth: Normal Inspection, Normal Lips, Normal Voice, No Airway Compromise Head: Atraumatic, Normocephalic Neck: Normal Inspection, Supple, Non-Tender Respiratory/Chest: No Respiratory Distress, Lungs Clear, Normal Breath Sounds, No Accessory Muscle Use, Chest Non-Tender Cardiovascular: Regular Rate, Rhythm, No Edema GI/Abdominal Exam: Soft, Tender (Mild somewhat generalized tenderness especially on the left side of the abdomen.). No: Guarding, Rigid, Rebound Back Exam: Normal Inspection Extremities: Non-Tender, No Pedal Edema, Other (Generalized skeletal muscle wasting. Mild diffuse ecchymosis and mild swelling dorsum of left hand ( injection site for methamphetamine 3 days ago).) Neurological: Alert, Oriented, Normal Cognition, No Motor/Sensory Deficits Psychiatric: Normal Affect Skin Exam: Warm, Dry Course - Vital Signs Last Recorded V/S: Last Vital Signs Temp 36.4 C 02/01/20 03:11 Pulse 80 02/01/20 03:11 Resp 16 02/01/20 03:11 BP 102/81 02/01/20 03:11 Pulse Ox 100 02/01/20 03:11 - Orders/Labs/Meds Orders: Active Orders 24 hr Category Date Time Status Abdomen Pelvis w Cont [CT] Stat Exams 02/01/20 05:37 Taken Labs: Laboratory Tests 02/01/20 02/01/20 02/01/20 Range/Units 03:25 03:25 03:25 WBC (3.98-10.04) K/mm3 RBC (3.98-5.22) M/mm3 Hgb (11.2-15.7) gm/dl Hct (34.1-44.9) % MCV (79.4-94.8) fl MCH (25.6-32.2) pg MCHC (32.2-35.5) g/dl RDW Std Deviation (36.4-46.3) fL Plt Count (182-369) K/mm3 MPV (9.4-12.3) fl Neutrophils % (Manual) (40-60) % Band Neutrophils % (0-10) % Lymphocytes % (Manual) (20-40) % Atypical Lymphs % % Monocytes % (Manual) (2-10) % Eosinophils % (Manual) (0.7-5.8) % Basophils % (Manual) (0.1-1.2) Platelet Estimate RBC Morph Comment Sodium (136-145) mEq/L Potassium (3.5-5.1) mEq/L Chloride (98-107) mEq/L Carbon Dioxide (21-32) mEq/L Anion Gap (5-15) BUN (7-18) mg/dL Creatinine (0.55-1.02) mg/dL Est Cr Clr Drug Dosing mL/min Estimated GFR (MDRD) (>60) mL/min BUN/Creatinine Ratio (14-18) Glucose (74-106) mg/dL Calcium (8.5-10.1) mg/dL Total Bilirubin (0.2-1.0) mg/dL AST (15-37) U/L ALT (14-59) U/L Alkaline Phosphatase (46-116) U/L Troponin I (0.00-0.056) ng/mL Total Protein (6.4-8.2) g/dl Albumin (3.4-5.0) g/dl Globulin gm/dL Albumin/Globulin Ratio (1-2) Lipase (73-393) U/L Urine Color Yellow (Yellow) Urine Appearance Clear (Clear) Urine pH 6.0 (5.0-8.0) Ur Specific [place] 1.025 (1.005-1.030) Urine Protein Negative (Negative) Urine Glucose (UA) Negative (Negative) Urine Ketones Negative (Negative) Urine Occult Blood Trace-lysed H (Negative) Urine Nitrite Negative (Negative) Urine Bilirubin Negative (Negative) Urine Urobilinogen 0.2 (0.2-1.0) Ur Leukocyte Esterase Negative (Negative) Urine RBC 0-5 (0-5) /hpf Urine WBC 0-5 (0-5) /hpf Ur Squamous Epith Cells 0-5 (0-5) /hpf Urine Bacteria Few (FEW) /hpf Urine Mucus Moderate H (FEW) /hpf Urine HCG, Qual Negative (NEGATIVE) Urine Opiates Screen Negative (QVCQGW=303) Ur Buprenorphine Scrn Negative (CUTOFF=10) Ur Oxycodone Screen Negative (MUO7CB=962) Urine Methadone Screen Negative (RHUGAY=860) Ur Propoxyphene Screen Negative (TFHEZX=238) Ur Barbiturates Screen Negative (YERQQN=274) Ur Tricyclics Screen Negative (XBOBIQ=465) Ur Phencyclidine Scrn Negative (CUTOFF=25) Ur Amphetamine Screen Presumptive positive H (KJIHZR=838) U Methamphetamines Scrn Presumptive positive H (YIVAXQ=871) U Benzodiazepines Scrn Negative (CGDVDE=394) U Cocaine Metab Screen Negative (PZIVAY=109) U Marijuana (THC) Screen Presumptive positive H (CUTOFF=50) 02/01/20 02/01/20 Range/Units 03:40 03:40 WBC 12.24 H (3.98-10.04) K/mm3 RBC 4.56 (3.98-5.22) M/mm3 Hgb 13.5 (11.2-15.7) gm/dl Hct 41.0 (34.1-44.9) % MCV 89.9 D (79.4-94.8) fl MCH 29.6 (25.6-32.2) pg MCHC 32.9 (32.2-35.5) g/dl RDW Std Deviation 41.5 (36.4-46.3) fL Plt Count 278 (182-369) K/mm3 MPV 8.8 L (9.4-12.3) fl Neutrophils % (Manual) 46 (40-60) % Band Neutrophils % 0 (0-10) % Lymphocytes % (Manual) 42 H (20-40) % Atypical Lymphs % 0 % Monocytes % (Manual) 6 (2-10) % Eosinophils % (Manual) 6 H (0.7-5.8) % Basophils % (Manual) 0 L (0.1-1.2) Platelet Estimate Adequate RBC Morph Comment Normal Sodium 142 (136-145) mEq/L Potassium 3.4 L (3.5-5.1) mEq/L Chloride 104 (98-107) mEq/L Carbon Dioxide 29 (21-32) mEq/L Anion Gap 12.4 (5-15) BUN 11 (7-18) mg/dL Creatinine 0.7 (0.55-1.02) mg/dL Est Cr Clr Drug Dosing 92.37 mL/min Estimated GFR (MDRD) > 60 (>60) mL/min BUN/Creatinine Ratio 15.7 (14-18) Glucose 99 (74-106) mg/dL Calcium 8.9 (8.5-10.1) mg/dL Total Bilirubin 0.2 (0.2-1.0) mg/dL AST 7 L (15-37) U/L ALT 14 (14-59) U/L Alkaline Phosphatase 52 (46-116) U/L Troponin I < 0.017 (0.00-0.056) ng/mL Total Protein 6.9 (6.4-8.2) g/dl Albumin 3.5 (3.4-5.0) g/dl Globulin 3.4 gm/dL Albumin/Globulin Ratio 1.0 (1-2) Lipase 158 (73-393) U/L Urine Color (Yellow) Urine Appearance (Clear) Urine pH (5.0-8.0) Ur Specific [place] (1.005-1.030) Urine Protein (Negative) Urine Glucose (UA) (Negative) Urine Ketones (Negative) Urine Occult Blood (Negative) Urine Nitrite (Negative) Urine Bilirubin (Negative) Urine Urobilinogen (0.2-1.0) Ur Leukocyte Esterase (Negative) Urine RBC (0-5) /hpf Urine WBC (0-5) /hpf Ur Squamous Epith Cells (0-5) /hpf Urine Bacteria (FEW) /hpf Urine Mucus (FEW) /hpf Urine HCG, Qual (NEGATIVE) Urine Opiates Screen (RAXOBF=077) Ur Buprenorphine Scrn (CUTOFF=10) Ur Oxycodone Screen (TAA0DF=577) Urine Methadone Screen (QBFTKV=609) Ur Propoxyphene Screen (MQKTGX=084) Ur Barbiturates Screen (BMHGZX=694) Ur Tricyclics Screen (NIMHTI=655) Ur Phencyclidine Scrn (CUTOFF=25) Ur Amphetamine Screen (DQQUGC=491) U Methamphetamines Scrn (NACWYD=408) U Benzodiazepines Scrn (CCYIOT=289) U Cocaine Metab Screen (REDKUB=373) U Marijuana (THC) Screen (CUTOFF=50) Meds: Medications Discontinued Medications Generic Name Dose Route Start Last Admin Trade Name Freq PRN Reason Stop Dose Admin Iopamidol 100 ml 05/05/20 06:21 02/01/20 06:21 Isovue-300 (61%) IVPUSH 02/01/20 06:22 100 ml ONETIME ONE Administration - Re-Assessments/Exams Free Text/Narrative Re-Assessment/Exam: 02/01/20 04:43 For reasons that are not altogether clear the patient expressed a wish to leave AGAINST MEDICAL ADVICE. We tried to persuade the patient to stay and emphasized to her that she may have a condition that is life-threatening but she decided to leave anyway. 02/01/20 06:19 Patient has relented and she has allowed us to continue with her evaluation. KUB was done showing a large amount of stool. A CT is pending. Patient says she had a normal bowel movement the previous day. Denies any constipation straining at the stool or diarrhea. 02/01/20 06:22 02/01/20 06:[address] report noted. Abundant stool but no acute pathology in the CT scan. We will discharge the patient on MiraLAX as she probably has constipation causing her symptoms. See instructions below 02/01/20 06:48 Discussed the patient's drug abuse. She contends that this is episodic and that she is not a candidate for rehab. Departure - Departure Time of Disposition: 04:43 Disposition: Home, Self-Care 01 Condition: Good, Undetermined Clinical Impression: Methamphetamine abuse, IV drug abuse, Polysubstance abuse, Low body mass index , Left against medical advice Abdominal pain Qualifiers: Abdominal location: unspecified location Qualified Code(s): R10.9 - Unspecified abdominal pain Constipation Qualifiers: Constipation type: unspecified constipation type Qualified Code(s): K59.00 - Constipation, unspecified - Discharge Information *PRESCRIPTION DRUG MONITORING PROGRAM REVIEWED*: Not Applicable *COPY OF PRESCRIPTION DRUG MONITORING REPORT IN PATIENT LIZZIE: Not Applicable Prescriptions: polyethylene glycoL 3350 [MiraLAX] 17 gm PO BEDTIME #10 packet Referrals: Casi Hwang MD [Primary Care Provider] - Forms: ED Department Discharge Additional Instructions: You have been evaluated for abdominal pain. This seems to be related to a great deal of stool and possibly constipation. You have had prescribed a laxative to take on a daily basis for the next several days. Please report this visit to your primary and arrange follow-up as directed. Feel free to return to the emergency department at any time especially for increased pain fever vomiting etc. If you think you are a candidate for drug rehab please return and we will help you find appropriate placement. Sepsis Event Note - Evaluation Sepsis Screening Result: No Definite Risk - Focused Exam Vital Signs: Vital Signs Temp Pulse Resp BP Pulse Ox 02/01/20 03:11 36.4 C 80 16 102/81 100 Date Exam was Performed: 02/01/20 Time Exam was Performed: 06:42 - My Orders Last 24 Hours: My Active Orders 02/01/20 05:37 Abdomen Pelvis w Cont [CT] Stat - Assessment/Plan Last 24 Hours: My Active Orders 02/01/20 05:37 Abdomen Pelvis w Cont [CT] Stat
--- NOTE | 2020-02-01 06:19 | CR ---
Abdomen: Supine view of the abdomen was obtained. Comparison: No prior abdominal x-ray, prior CT abdomen and pelvis study of 02/20/18 is available. Mild increased stool is seen within portions of the colon. Intramedullary dexter is partially visualized within the right femur. No acute bony abnormality is seen. Calcifications are noted within the pelvis compatible with phleboliths. No discrete soft tissue abnormality is seen. Impression: 1. Increase stool within the colon. 2. Other findings believed to be incidental. Diagnostic code #2 This report was dictated in MDT
[2020-02-01] MEDS ORDERED: Iopamidol 612 MG/ML 100 ML Bottle IVPUSH ONE (06:21)
--- NOTE | 2020-02-01 06:43 | CT ---
CT abdomen and pelvis Technique: Multiple axial sections were obtained from above the dome of the diaphragm inferiorly through the pubic symphysis. Intravenous contrast was utilized. No oral contrast has been given. Comparison: Previous CT abdomen and pelvis study of 02/20/18. Findings: Visualized lung bases are clear. Spleen appears within normal limits. Adrenal glands show no nodule. Pancreas shows no discrete abnormality. Kidneys show symmetric contrast enhancement without hydronephrosis or mass. Gallbladder partially collapsed which shows no calcified gallstones. Liver shows a low density area next of the ligamentum teres fissure compatible with focal fat. Liver is otherwise unremarkable. Kidneys show symmetric contrast enhancement. Small nonobstructing calculus is noted within the lower right kidney. Aorta shows no aneurysm. No retroperitoneal adenopathy or mesenteric abnormalities are seen. No pelvic mass or adenopathy is seen. No free fluid or inflammatory change is identified. Mild increased stool seen throughout the colon. Appendix not visualized with certainty. No free fluid or inflammatory change is identified. Bone window settings were reviewed. No acute osseous finding is appreciated. Intramedullary dexter partially is seen within the right femur. Impression: 1. Increased stool within the colon. 2. Small nonobstructing calculus within the lower right kidney. 3. Nothing acute is appreciated on CT study of the abdomen and pelvis. Diagnostic code #2 This report was dictated in MDT
== END 2020-02-01 07:05 | disposition home or self-care (01) ==
LOC: JD.ED 03:06
DX: K59.00 Constipation, unspecified (principal); F15.10 Other stimulant abuse, uncomplicated; F19.10 Other psychoactive substance abuse, uncomplicated; E66.9 Obesity, unspecified; Z68.1 Body mass index [BMI] 19.9 or less, adult; F17.210 Nicotine dependence, cigarettes, uncomplicated; Z88.8 Allergy status to other drugs, medicaments and biological substances
CPT/HCPCS: 36415; 74018; 74177; 80053; 80306; 81001; 81025; 83690; 84484; 85007; 85027; 99284; Q9967

== ENCOUNTER 2020-03-11 13:08 | Emergency (ER) | payer SELFPAY ==
--- NOTE | 2020-03-11 13:49 | EDM.PDOC ---
ED HPI GENERAL MEDICAL PROBLEM - General Chief Complaint: Chest Pain Stated Complaint: CHEST PAIN,SOB AND LEG AND FOOT PAIN Time Seen by Provider: 03/11/20 13:46 - History of Present Illness INITIAL COMMENTS - FREE TEXT/NARRATIVE: 34-year-old female presents the emergency room with on and off chest pain for the last 2 weeks and she irritated her right foot last night. The patient's been having on and off chest pain for the last couple of weeks. This is not aggravated by exercise or activity. Patient has been having significant problems with her anxiety and to a lesser degree her depression. Yesterday the patient ran and then walked for a total of 2 to 3 miles yesterday at a vigorous pace and did not experience any chest pain during or after this. The patient has been clean off of meth for the last 6 weeks and this is perhaps making her situation a little worse. She is trying to reestablish at [facility]. Patient is a little reluctant for treatment for anxiety and depression as she has been started on Paxil in the past and after she had been on this for a week and 1/2 to 2 weeks tried to overdose. She has been on lorazepam in the past and has done okay with this. Patient denies any suicidal wishes or thoughts at this time and she does not wish to hurt anybody. This morning the patient awoke and noticed some swelling around her left great toe and had developed blisters on the outside of this toe and the inside of the second toe. As stated above the patient ran quite a bit yesterday and then walked for a while. Left Chest Pain Score (Numeric/FACES): 8 - Related Data Allergies Allergy/AdvReac Type Severity Reaction Status Date / Time paroxetine [From Paxil] AdvReac Severe Irritabilit Verified 03/11/20 13:29 y Home Meds: Home Meds LORazepam [Ativan] 0.5 mg PO Q12H PRN #10 tablet 03/11/20 [Rx] Multivitamin 1 tab PO DAILY 03/11/20 [History] Past Medical History HEENT History: Reports: Allergic Rhinitis Cardiovascular History: Reports: Heart Murmur, Other (See Below) Other Cardiovascular History: pt states she has a "heart blockage" Respiratory History: Reports: Asthma Genitourinary History: Reports: Renal Calculus [employer] History: Reports: , Spontaneous Musculoskeletal History: Reports: Fracture Other Musculoskeletal History: femur fx right leg Neurological History: Reports: Migraines Psychiatric History: Reports: Addiction, Anxiety, Depression, Suicide Attempt - Past Surgical History HEENT Surgical History: Reports: Adenoidectomy, Oral Surgery, Tonsillectomy Female Surgical History: Reports: D&C, Tubal Ligation Musculoskeletal Surgical History: Reports: ORIF, Other (See Below) Other Musculoskeletal Surgeries/Procedures:: fx to femur with pin and rods placed Social & Family History - Family History Family Medical History: Noncontributory - Tobacco Use Smoking Status *Q: Current Every Day Smoker Years of Tobacco use: 20 Packs/Tins Daily: 1 - Caffeine Use Caffeine Use: Reports: Coffee, Energy Drinks, Soda, Tea - Recreational Drug Use Recreational Drug Use: Yes Drug Use in Last 12 Months: Yes Recreational Drug Type: Reports: Methamphetamine - Living Situation & Occupation Living situation: Reports: , with Significant Other (Boyfriend) Occupation: Unemployed ED ROS GENERAL - Review of Systems Review Of Systems: See Below Constitutional: Reports: No Symptoms, Weight Gain Respiratory: Reports: No Symptoms Cardiovascular: Reports: Chest Pain. Denies: Dyspnea on Exertion, Edema, Lightheadedness, Palpitations Endocrine: Reports: No Symptoms GI/Abdominal: Reports: No Symptoms : Reports: No Symptoms Musculoskeletal: Reports: Foot Pain Skin: Reports: No Symptoms Neurological: Reports: No Symptoms Psychiatric: Reports: Anxiety. Denies: Hallucinations, Homicidal Ideation, Mood Lability, Suicidal Ideation ED EXAM, GENERAL - Physical Exam Exam: See Below Exam Limited By: No Limitations General Appearance: Alert, No Apparent Distress Eye Exam: Bilateral Eye: Normal Inspection Head: Atraumatic, Normocephalic Neck: Normal Inspection, Supple, Non-Tender, Full Range of Motion. No: Lymphadenopathy (L), Lymphadenopathy (R) Respiratory/Chest: No Respiratory Distress, Lungs Clear, Normal Breath Sounds Cardiovascular: Regular Rate, Rhythm, No Edema, No Murmur GI/Abdominal: Normal Bowel Sounds, Soft, Non-Tender Extremities: No Pedal Edema, Other (Patient her right foot shows that she has had a dorsal bunion probably for quite some time. Palpation of the metatarsal phalangeal joint shows bony spur formation on the dorsum of both bones she is developed some redness over this area and some tenderness with palpation this was the area that was all swollen this morning but has since resolved somewhat. She is developed a blister on the lateral aspect of this toe as well as the medial aspect of the second toe is when she was active last night probably rubbed these 2 toes together excessively with the lack of motion in the first metatarsal phalangeal joint.) Neurological: Alert, Oriented, Normal Cognition EKG INTERPRETATION EKG Date: 03/11/20 Rhythm: NSR [place]: Normal P-Wave: Present QRS: Normal ST-T: Normal QT: Normal Comparison: No Change (From prior EKG on 02/24/2019) EKG Interpretation Comments: Normal EKG Course - Vital Signs Last Recorded V/S: Last Vital Signs Temp 36.3 C 03/11/20 13:25 Pulse 101 H 03/11/20 13:25 Resp 18 03/11/20 13:25 BP 107/75 03/11/20 13:25 Pulse Ox 99 03/11/20 13:25 - Orders/Labs/Meds Orders: Active Orders 24 hr Category Date Time Status EKG Documentation Completion [RC] STAT Care 03/11/20 14:12 Active Meds: Medications Discontinued Medications Generic Name Dose Route Start Last Admin Trade Name Gerri PRN Reason Stop Dose Admin Lorazepam 1 mg 03/11/20 14:13 03/11/20 14:17 Ativan PO 03/11/20 14:14 1 mg ONETIME ONE Administration - Re-Assessments/Exams Free Text/Narrative Re-Assessment/Exam: 03/11/20 14:34 We will check an EKG and give her a dose of lorazepam now and see how she does. We both feel that x-ray of her foot would probably be of no benefit and she had no pain in her foot last night woke up with the swelling and discomfort this morning. 03/11/20 15:27 Is doing much better after getting some Ativan she is sleeping in the exam room and would like to go home. Her EKG is absolutely normal. I will discharge her with a few lorazepam 0.5 mg tablets to use twice daily as needed for anxiety and she will call [facility] Friday for an appointment. Departure - Departure Time of Disposition: 15:28 Disposition: Home, Self-Care 01 Clinical Impression: Anxiety, Chest pain, Foot pain, left, Blister of left foot - Discharge Information Referrals: Casi Hwang MD [Primary Care Provider] - Forms: ED Department Discharge Additional Instructions: Return to the emergency room with any questions problems or worsening symptoms. Use the anxiety medication as needed. Call [facility] on Friday to schedule an appointment early this next week. Keep the blisters covered up with Band-Aids. They are getting be sore for a while. Sepsis Event Note (ED) - Evaluation Sepsis Screening Result: No Definite Risk - Focused Exam Vital Signs: Vital Signs Temp Pulse Resp BP Pulse Ox 03/11/20 13:25 36.3 C 101 H 18 107/75 99 - My Orders Last 24 Hours: My Active Orders 03/11/20 14:12 EKG Documentation Completion [RC] STAT - Assessment/Plan Last 24 Hours: My Active Orders 03/11/20 14:12 EKG Documentation Completion [RC] STAT
[2020-03-11] MEDS ORDERED: LORazepam 1 MG Tab PO ONE (14:13)
[2020-03-11 16:02] VITALS: BP 98/49; PULSE 86
== END 2020-03-11 15:55 | disposition home or self-care (01) ==
LOC: JD.ED 13:08
DX: S90.822A Blister (nonthermal), left foot, initial encounter (principal); R07.9 Chest pain, unspecified; F41.9 Anxiety disorder, unspecified; F32.9 Major depressive disorder, single episode, unspecified; F17.210 Nicotine dependence, cigarettes, uncomplicated; Z88.8 Allergy status to other drugs, medicaments and biological substances; X58.XXXA Exposure to other specified factors, initial encounter
CPT/HCPCS: 93005; 99284; A9270; 93010

== ENCOUNTER 2020-08-26 22:20 | Emergency (ER) | payer OTHER ==
[2020-08-26 22:39] VITALS: BP 137/87; PULSE 84
--- NOTE | 2020-08-26 22:46 | EDM.PDOC ---
ED HPI GENERAL MEDICAL PROBLEM - General Chief Complaint: Lower Extremity Injury/Pain Stated Complaint: INJURED RIGHT ANKLE Time Seen by Provider: 08/26/20 22:45 Source of Information: Reports: Patient History Limitations: Reports: No Limitations - History of Present Illness INITIAL COMMENTS - FREE TEXT/NARRATIVE: 34-year-old female presents to the ED with severe left calcaneal foot pain. Patient states that she woke from sleep to her phone ringing and as she was rolling over quickly in bed to get her phone she brought her left foot down hard on a coffee table near the bed. She hit with a tremendous amount of force and heard something crack. This occurred approximately 1430 hrs. today. Since that time she has been using Advil Tylenol soaked it in warm fluids with Epson salts with no relief of the pain. Pain is constant and throbbing particular over the posterior aspect of the calcaneus just below the insertion of the Achilles tendon. She cannot weight-bear on the left foot at all. No previous problems with any of the foot bones. No previous left foot surgery. Onset: Today, Sudden Onset Date: 08/26/20 Onset Time: 14:30 Duration: Hour(s):, Getting Worse Location: Reports: Lower Extremity, Left (Trauma to the left posterior calcaneus several hours ago which is getting gradually worse as it is swelling and) Quality: Reports: Ache ( throbbing.), Throbbing, Other Severity: Moderate (Stating pain at times. 8 out of 10) Improves with: Reports: None Worsens with: Reports: Other (With weightbearing or trying to walk.) Context: Reports: Trauma (Force trauma when she came down hard on a coffee table close to her bed with a heel of her left foot.). 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, NSAIDS (Add Advil and Aleve.) Right Foot Pain Score (Numeric/FACES): 10 - Related Data Allergies Allergy/AdvReac Type Severity Reaction Status Date / Time paroxetine [From Paxil] AdvReac Severe Irritabilit Verified 08/26/20 22:39 y Home Meds: Home Meds LORazepam [Ativan] 0.5 mg PO Q12H PRN #10 tablet 03/11/20 [Rx] Multivitamin 1 tab PO DAILY 03/11/20 [History] oxyCODONE HCl/Acetaminophen [Percocet 5-325 mg Tablet] 1 - 2 each PO Q4H PRN #12 tablet 08/27/20 [Rx] Past Medical History HEENT History: Reports: Allergic Rhinitis Cardiovascular History: Reports: Heart Murmur, Other (See Below) Other Cardiovascular History: pt states she has a "heart blockage" Respiratory History: Reports: Asthma Genitourinary History: Reports: Renal Calculus 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: , 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 Musculoskeletal History: Reports: Fracture Other Musculoskeletal History: femur fx right leg Neurological History: Reports: Migraines Psychiatric History: Reports: Addiction, Anxiety, Depression, Suicide Attempt - Infectious Disease History Infectious Disease History: Reports: Novel Coronavirus - Past Surgical History HEENT Surgical History: Reports: Adenoidectomy, Oral Surgery, Tonsillectomy Female Surgical History: Reports: D&C, Tubal Ligation Other Female Surgeries/Procedures: pt had a tubal years ago; Musculoskeletal Surgical History: Reports: ORIF, Other (See Below) Other Musculoskeletal Surgeries/Procedures:: fx to femur with pin and rods placed Social & Family History - Family History Family Medical History: No Pertinent Family History - Tobacco Use Tobacco Use Status *Q: Never Tobacco User - Caffeine Use Caffeine Use: Reports: Coffee, Energy Drinks, Soda, Tea - Living Situation & Occupation Living situation: Reports: , with Significant Other (Boyfriend) Occupation: Unemployed Review of Systems - Review of Systems Review Of Systems: See Below Constitutional: Reports: No Symptoms Eyes: Reports: No Symptoms Ears: Reports: No Symptoms Nose: Reports: No Symptoms Mouth/Throat: Reports: No Symptoms Respiratory: Reports: No Symptoms Cardiovascular: Reports: No Symptoms GI/Abdominal: Reports: No Symptoms Genitourinary: Reports: No Symptoms Musculoskeletal: Reports: Other (Having severe constant pain in her left heel.) Skin: Reports: No Symptoms Neurological: Reports: No Symptoms Psychiatric: Reports: Anxiety ED EXAM, GENERAL - Physical Exam Exam: See Below Exam Limited By: No Limitations General Appearance: Alert, WD/WN, Mild Distress, Other (Temperature is 37.1 with a heart rate of 84 and sinus respiratory 16 BP 137/87 with a pulse ox of 98% room air.) Eye Exam: Bilateral Eye: Normal Inspection, PERRL Extremities: Other (Lamination essentially limited to the left lower extremity. She does have bruising and swelling to the posterior aspect of the left calcaneus just at both the insertion of the Achilles tendon over the Achilles bursa. There appears to be some erythema and diffuse swelling of the entire heel. It is not warm to palpation however. Patient has trouble dorsiflexing the right foot due to the intensity of the pain. There is also some pain with plantar flexion but not as bad) Neurological: Alert, Oriented, CN II-XII Intact, Normal Cognition, Normal Gait Psychiatric: Normal Affect, Normal Mood Skin Exam: Warm, Dry, Intact, Normal Color, No Rash Course - Vital Signs Last Recorded V/S: Last Vital Signs Temp 37.1 C 08/26/20 22:35 Pulse 84 08/26/20 22:35 Resp 16 08/26/20 22:35 BP 137/87 08/26/20 22:35 Pulse Ox 98 08/26/20 22:35 - Orders/Labs/Meds Orders: Active Orders 24 hr Category Date Time Status Foot Comp Min 3V Rt [CR] Stat Exams 08/26/20 23:25 Taken Meds: Medications Discontinued Medications Generic Name Dose Route Start Last Admin Trade Name Gerri PRN Reason Stop Dose Admin Ondansetron HCl 4 mg 08/26/20 22:56 08/26/20 23:04 Zofran Odt PO 08/26/20 22:57 4 mg ONETIME ONE Administration Oxycodone/Acetaminophen 1 tab 08/26/20 22:56 08/26/20 23:03 Percocet 325-5 Mg PO 08/26/20 22:57 1 tab ONETIME ONE Administration - Radiology Interpretation Free Text/Narrative:: 34-year-old female presents to the ED with constant throbbing pulsating pain in her left heel. She reports earlier this afternoon she awoke from sleep to grab her phone and accidentally brought her left foot down hard on a coffee table near her bed striking the posterior aspect of her calcaneus on the coffee table. She heard a crack at that time and actually checked the table to see if there was a break in the table but none was found. Subsequently she developed increased throbbing constant pulsating pain in the left heel without relief from Tylenol or NSAIDs. Examination reveals swelling and bruising posterior aspect of the calcaneus just inferior to the insertion site of the Achilles tendon over the Achilles bursa. Plan x-ray of the right foot to be obtained. Given Percocet five 325 mg x 2 for pain relief with Zofran 4 mg sublingual. - Re-Assessments/Exams Free Text/Narrative Re-Assessment/Exam: 08/27/20 00:32 : X-rays of the left foot reveal no abnormalities of the calcaneus. Appears that she has suffered a contusion to the Achilles bursa and posterior aspect of the calcaneus or bone bruise. She can barely weight-bear and has crutches at home. She will use crutches until able to walk without pain likely be 4 to 5 days. Continue Motrin 600 mg every 6 hours to relieve pain and inflammation. Percocet tabs 5/325 mg 1-2 every 4-6 hours necessary for pain relief x12 provided through the [employer] machine. Departure - Departure Time of Disposition: :13 Disposition: Home, Self-Care 01 Condition: Fair Clinical Impression: Contusion of left heel Qualifiers: Encounter type: initial encounter Qualified Code(s): S90.32XA - Contusion of left foot, initial encounter - Discharge Information *PRESCRIPTION DRUG MONITORING PROGRAM REVIEWED*: No *COPY OF PRESCRIPTION DRUG MONITORING REPORT IN PATIENT LIZZIE: No Prescriptions: oxyCODONE HCl/Acetaminophen [Percocet 5-325 mg Tablet] 1 - 2 each PO Q4H PRN #12 tablet PRN Reason: pain relief. Instructions: Contusion, [id number] Referrals: PCP,None [Primary Care Provider] - Forms: ED Department Discharge Additional Instructions: Evaluation in the emergency room today in regards to acute injury to the left heel that occurred mid afternoon yesterday. Blunt trauma occurred to the posterior aspect of your calcaneus or heel bone just inferior to the insertion site of the Achilles tendon. There is a bursa in this area called the Achilles bursa. It is likely been injured from the trauma causing swelling and significant pain with trying to walk. X-rays of the area did not reveal any broken bones but there is evidence of a bone bruise. Treatment is nonweightbearing with crutches. Johnny wrap on during the day and off at night although you may leave it on all night tonight. Ice pack to the area 1/2-hour of every 4 hours for another day will help reduce pain and swelling. Continue Motrin 600 mg every 6 hours and Percocet tabs 5/325 mg take 1 or 2 every 4-6 hours necessary for pain relief as well. Expect pain to get better over the next 3 to 4 days. Likely will be able to weight-bear after this. Likely will not be able to go up a flight of stairs without pain for about 2 weeks. Follow- up with personal care physician if not not markedly improved in 12 to 14 days time Sepsis Event Note (ED) - Evaluation Sepsis Screening Result: No Definite Risk - Focused Exam Vital Signs: Vital Signs Temp Pulse Resp BP Pulse Ox 08/26/20 22:35 37.1 C 84 16 137/87 98 - My Orders Last 24 Hours: My Active Orders 08/26/20 23:25 Foot Comp Min 3V Rt [CR] Stat - Assessment/Plan Last 24 Hours: My Active Orders 08/26/20 23:25 Foot Comp Min 3V Rt [CR] Stat
[2020-08-26] MEDS ORDERED: Acetaminophen/oxyCODONE 325-5 MG Tab PO ONE (22:56)
[2020-08-26] MEDS ORDERED: Ondansetron 4 MG Tab.DIS PO ONE (22:56)
--- NOTE | 2020-08-28 12:23 | CR ---
PROCEDURE INFORMATION: Exam: XR Right Foot Complete Exam date and time: 08/26/2020 11:09 PM Age: 34 years old Clinical indication: Pain; Foot; Right; Patient HX: Blunt trauma to the posterior aspect of the calcaneus this evening; Additional info: No priors available TECHNIQUE: Imaging protocol: XR Right foot. Views: 3 or more views. COMPARISON: No relevant prior studies available. FINDINGS: Bones/joints: Normal. Soft tissues: Normal. IMPRESSION: No acute findings. Thank you for allowing us to participate in the care of your patient. Dictated and Authenticated by: Everardo Samaniego MD 08/27/2020 1:30 AM Central Time ([place] & [place]) QUANG
== END 2020-08-27 01:30 | disposition home or self-care (01) ==
LOC: JD.ED 22:20
DX: S90.32XA Contusion of left foot, initial encounter (principal); J45.909 Unspecified asthma, uncomplicated; Z88.8 Allergy status to other drugs, medicaments and biological substances; W22.8XXA Striking against or struck by other objects, initial encounter
CPT/HCPCS: 73630; 99283; A9270

== ENCOUNTER 2020-08-31 11:07 | Emergency (ER) | payer OTHER ==
[2020-08-31 11:29] VITALS: BP 118/58; PULSE 98
[2020-08-31] MEDS ORDERED: Ketorolac 60 MG/2 ML SDV IM ONE (11:57)
--- NOTE | 2020-08-31 12:02 | EDM.PDOC ---
ED HPI GENERAL MEDICAL PROBLEM - General Chief Complaint: Lower Extremity Injury/Pain Stated Complaint: R ANKLE INJURY Time Seen by Provider: 08/31/20 11:27 Source of Information: Reports: Patient, Old Records, RN Notes Reviewed History Limitations: Reports: No Limitations - History of Present Illness INITIAL COMMENTS - FREE TEXT/NARRATIVE: Patient is a 34-year-old female who presents to the ED for evaluation of a right ankle injury. She was evaluated here on 08/26/2020, and found to have a right heel bruise at that time. She states that she was in her home this morning, walking to the front door and she ended up tripping over her dog. She states that she twisted her right ankle again after this. She is having pain in the lateral ankle just under the lateral malleolus. She denies any numbness or tingling into the toes. She has been using a walking boot, and has been trying to utilize crutches as she was told to stay nonweightbearing as much as possible for the next week. Patient has a prescription for Percocet, but she states that this makes her nauseous and she does not like to take them due to the nausea. She has been using Motrin at home as well, 400 mg every 6 hours and this seems to help along with ice. 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 Patient denies any other sick-like symptoms, fever/chills, cough/shortness of breath, nausea/vomiting/diarrhea. - Related Data Allergies Allergy/AdvReac Type Severity Reaction Status Date / Time paroxetine [From Paxil] AdvReac Severe Irritabilit Verified 08/31/20 11:29 y Home Meds: Home Meds LORazepam [Ativan] 0.5 mg PO Q12H PRN #10 tablet 03/11/20 [Rx] Multivitamin 1 tab PO DAILY 03/11/20 [History] Acetaminophen/HYDROcodone [[place] 325-5 MG] 1 tab PO Q6H PRN #12 tablet 08/31/20 [Rx] Past Medical History HEENT History: Reports: Allergic Rhinitis Cardiovascular History: Reports: Heart Murmur, Other (See Below) Other Cardiovascular History: pt states she has a "heart blockage" Respiratory History: Reports: Asthma Genitourinary History: Reports: Renal Calculus 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: , 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 Musculoskeletal History: Reports: Fracture Other Musculoskeletal History: femur fx right leg Neurological History: Reports: Migraines Psychiatric History: Reports: Addiction, Anxiety, Depression, Suicide Attempt - Infectious Disease History Infectious Disease History: Reports: Novel Coronavirus - Past Surgical History HEENT Surgical History: Reports: Adenoidectomy, Oral Surgery, Tonsillectomy Female Surgical History: Reports: D&C, Tubal Ligation Other Female Surgeries/Procedures: pt had a tubal years ago; Musculoskeletal Surgical History: Reports: ORIF, Other (See Below) Other Musculoskeletal Surgeries/Procedures:: fx to femur with pin and rods placed Social & Family History - Family History Family Medical History: No Pertinent Family History - Tobacco Use Tobacco Use Status *Q: Never Tobacco User - Caffeine Use Caffeine Use: Reports: Coffee, Energy Drinks, Soda, Tea - Living Situation & Occupation Living situation: Reports: , with Significant Other (Boyfriend) Occupation: Unemployed Review of Systems - Review of Systems Review Of Systems: Comprehensive ROS is negative, except as noted in HPI. ED EXAM, GENERAL - Physical Exam Exam: See Below Exam Limited By: No Limitations General Appearance: Alert, WD/WN, No Apparent Distress Respiratory/Chest: No Respiratory Distress, Lungs Clear, Normal Breath Sounds, No Accessory Muscle Use, Chest Non-Tender Cardiovascular: Normal Peripheral Pulses, Regular Rate, Rhythm, No Murmur Peripheral Pulses: 2+: Dorsalis Pedis (L), Dorsalis Pedis (R) Neurological: Alert, Oriented, Normal Cognition, No Motor/Sensory Deficits Psychiatric: Normal Affect, Normal Mood Skin Exam: Warm, Dry, Intact, Normal Color, No Rash Course - Vital Signs Last Recorded V/S: Last Vital Signs Temp 97.8 F 08/31/20 11:26 Pulse 98 08/31/20 11:26 Resp 16 08/31/20 11:26 BP 118/58 L 08/31/20 11:26 Pulse Ox 100 08/31/20 11:26 - Orders/Labs/Meds Orders: Active Orders 24 hr Category Date Time Status Ankle Min 3V Rt [CR] Stat Exams 08/31/20 11:29 Taken Meds: Medications Discontinued Medications Generic Name Dose Route Start Last Admin Trade Name Freq PRN Reason Stop Dose Admin Ketorolac Tromethamine 60 mg 08/31/20 11:57 08/31/20 12:17 Toradol IM 08/31/20 11:58 60 mg ONETIME ONE Administration - Re-Assessments/Exams Free Text/Narrative Re-Assessment/Exam: 08/31/20 11:59 Patient presents to the ED for evaluation of her right ankle injury. X-rays demonstrate no focal abnormalities appreciated. Reviewed by myself and Dr. Maria. Patient notes that the Percocet makes her nauseous so she has not been using this. I did come to agreement with her, she is to take the Percocet back to the pharmacy and have them destroy it, she will get a few tablets of hydrocodone for further pain management. I did tell her that Advil/Motrin would be much better for her disease course. She agrees to this. Departure - Departure Time of Disposition: 12:02 Disposition: Home, Self-Care 01 Condition: Good Clinical Impression: Right ankle injury Qualifiers: Encounter type: initial encounter Qualified Code(s): S99.911A - Unspecified injury of right ankle, initial encounter - Discharge Information *PRESCRIPTION DRUG MONITORING PROGRAM REVIEWED*: Yes *COPY OF PRESCRIPTION DRUG MONITORING REPORT IN PATIENT LIZZIE: No Prescriptions: Acetaminophen/HYDROcodone [[place] 325-5 MG] 1 tab PO Q6H PRN #12 tablet PRN Reason: Pain Instructions: Ankle Sprain, [id number] Referrals: PCP,None [Primary Care Provider] - Forms: ED Department Discharge, ED Return to Work/School Form Additional Instructions: You have been evaluated in the ED for your right ankle injury. Your x-ray demonstrated no fractures or other focal bony abnormalities. Please use ice as tolerated to the affected area. Please try to elevate the affected area to relieve swelling. You may continue to use Johnny wraps, and the walking boot for further walking purposes. Please utilize the crutches as much as possible to stay nonweightbearing if you are having too much pain while walking with the walking boot by itself. You may take Tylenol 500 mg or ibuprofen 600mg q6 hrs for pain relief. Please do so until you have a tolerable level of pain with activity. Do not exceed 4000mg Tylenol or 3200mg ibuprofen in a 24 hour time period. You were given a prescription for a strong pain medication, hydroco done/acetaminophen 5/325 mg., please take 1 tab every 6 hours as needed for pain not relieved by Tylenol or ibuprofen alone. Please note this medication does contain Tylenol in it, so do not take more than 4000 mg in a 24-hour time span. These medications can be addictive, so please take as few as possible to achieve adequate pain control. These meds can also be quite constipating, recommend th at you increase your oral fluid intake and take a stool softener like MiraLAX while taking these medications. Do not drive while taking this medication. You will need to take the previous Percocet prescription to the pharmacy when obtaining the Martinton prescription, so that the pharmacy can destroy the Percocet tablets. Please return to ED if your symptoms should change or worsen. Sepsis Event Note (ED) - Evaluation Sepsis Screening Result: No Definite Risk - Focused Exam Vital Signs: Vital Signs Temp Pulse Resp BP Pulse Ox 08/31/20 11:26 97.8 F 98 16 118/58 L 100 - My Orders Last 24 Hours: My Active Orders 08/31/20 11:29 Ankle Min 3V Rt [CR] Stat - Assessment/Plan Last 24 Hours: My Active Orders 08/31/20 11:29 Ankle Min 3V Rt [CR] Stat
--- NOTE | 2020-08-31 12:58 | CR ---
Right ankle: 4 views of the right ankle were obtained. Comparison: No prior ankle study is available. Ankle mortise appears symmetric. No fracture or other bony abnormality is appreciated. Impression: 1. Nothing acute is appreciated on right ankle exam. Diagnostic code #1
== END 2020-08-31 12:27 | disposition home or self-care (01) ==
LOC: JD.ED 11:07
DX: S99.911A Unspecified injury of right ankle, initial encounter (principal); J45.909 Unspecified asthma, uncomplicated; Z88.8 Allergy status to other drugs, medicaments and biological substances; X50.1XXA Overexertion from prolonged static or awkward postures, initial encounter
CPT/HCPCS: 73610; 96372; 99283; J1885

== ENCOUNTER 2021-06-04 17:42 | Emergency (ER) | payer OTHER ==
[2021-06-04 19:26] VITALS: BP 105/61; PULSE 73
--- NOTE | 2021-06-04 20:55 | EDM.PDOC ---
ED HPI GENERAL MEDICAL PROBLEM - General Chief Complaint: Respiratory Problem Stated Complaint: POSS COVID Time Seen by Provider: 06/04/21 19:23 Source of Information: Reports: Patient History Limitations: Reports: No Limitations - History of Present Illness INITIAL COMMENTS - FREE TEXT/NARRATIVE: 35-year-old female presents the emergency department today with complaints of sore throat, cough, and headache that started yesterday. Patient states she did have Covid back in July. She did not receive her Covid vaccinations. She states that her daughter had been home for the past 2 weeks and went back to college and then did test positive for Covid. She is concerned that she may have Covid. She denies any recent fever, chills, nausea, vomiting or diarrhea. She denies any abdominal pain or urinary symptoms. She states she is otherwise healthy and does not take any prescription medications. She does admit to a history of smoking a pack a day for the past 15 years. 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) Other Treatments DRY CELL ASSEMBLY MACHINE TENDER: none Headache Pain Score (Numeric/FACES): 6 Throat Pain Score (Numeric/FACES): 4 Generalized Pain Score (Numeric/FACES): 7 - Related Data Allergies Allergy/AdvReac Type Severity Reaction Status Date / Time paroxetine [From Paxil] AdvReac Severe Irritabilit Verified 08/31/20 11:29 y Home Meds: Home Meds LORazepam [Ativan] 0.5 mg PO Q12H PRN #10 tablet 03/11/20 [Rx] Past Medical History HEENT History: Reports: Allergic Rhinitis Cardiovascular History: Reports: Heart Murmur, Other (See Below) Other Cardiovascular History: pt states she has a "heart blockage" Respiratory History: Reports: Asthma Genitourinary History: Reports: Renal Calculus 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: , 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 Musculoskeletal History: Reports: Fracture Other Musculoskeletal History: femur fx right leg Neurological History: Reports: Migraines Psychiatric History: Reports: Addiction, Anxiety, Depression, Suicide Attempt - Infectious Disease History Infectious Disease History: Reports: Novel Coronavirus - Past Surgical History HEENT Surgical History: Reports: Adenoidectomy, Oral Surgery, Tonsillectomy Female Surgical History: Reports: D&C, Tubal Ligation Other Female Surgeries/Procedures: pt had a tubal years ago; Musculoskeletal Surgical History: Reports: ORIF, Other (See Below) Other Musculoskeletal Surgeries/Procedures:: fx to femur with pin and rods placed Social & Family History - Family History Family Medical History: No Pertinent Family History - Tobacco Use Tobacco Use Status *Q: Current Every Day Tobacco User Years of Tobacco use: 15 Packs/Tins Daily: 1 - Caffeine Use Caffeine Use: Reports: Coffee - Recreational Drug Use Recreational Drug Use: No - Living Situation & Occupation Living situation: Reports: , with Significant Other (Boyfriend) Occupation: Unemployed ED ROS GENERAL - Review of Systems Review Of Systems: Comprehensive ROS is negative, except as noted in HPI. ED EXAM, GENERAL - Physical Exam Exam: See Below Exam Limited By: No Limitations General Appearance: Alert, WD/WN, No Apparent Distress Ears: Normal External Exam, Hearing Grossly Normal Nose: Normal Inspection Throat/Mouth: Normal Inspection, Normal Lips, Normal Teeth, Normal Gums, Normal Oropharynx, Normal Voice, No Airway Compromise Head: Atraumatic Neck: Normal Inspection, Supple Respiratory/Chest: No Respiratory Distress, Lungs Clear, Normal Breath Sounds, No Accessory Muscle Use, Chest Non-Tender Cardiovascular: Normal Peripheral Pulses, Regular Rate, Rhythm, No Edema, No Murmur Peripheral Pulses: 2+: Radial (L), Radial (R) GI/Abdominal: Normal Bowel Sounds, Soft, Non-Tender, No Distention (Female) Exam: Deferred Rectal (Female) Exam: Deferred Back Exam: Normal Inspection Extremities: Normal Inspection Neurological: Alert, Oriented, Normal Cognition Psychiatric: Normal Affect, Normal Mood Skin Exam: Warm, Dry, Intact, Normal Color, No Rash Lymphatic: No Adenopathy Course - Vital Signs Text/Narrative:: Physical exam is essentially unremarkable. She is hemodynamically stable and afebrile. Will obtain a Covid test. Last Recorded V/S: Last Vital Signs Temp 98.1 F 06/04/21 19:24 Pulse 73 06/04/21 19:24 Resp 18 06/04/21 19:24 BP 105/61 06/04/21 19:24 Pulse Ox 100 06/04/21 19:24 - Orders/Labs/Meds Labs: Laboratory Tests 06/04/21 Range/Units 20:41 SARS-CoV-2 RNA (AUTUMN) Negative (NEGATIVE) - Re-Assessments/Exams Free Text/Narrative Re-Assessment/Exam: 09/06/21 20:30 Nursing staff informs me that the patient does not want to wait for her Covid results. She will be discharged to home with recommendations that she quarantine and we will call her with the results. Departure - Departure Time of Disposition: 20:53 Disposition: Home, Self-Care 01 Condition: Good Clinical Impression: Viral upper respiratory illness - Discharge Information Referrals: PCP,None [Primary Care Provider] - Forms: ED Department Discharge Additional Instructions: You were seen in the emergency department with Covid type symptoms. Covid swab was collected and at the time of discharge the results were not yet back. As discussed, recommended that even if the results are negative, recommend that you quarantine for 10 days time as you likely do have the symptoms and it may be too early to obtain a positive result. Should your condition worsen or change, do not hesitate to return to the emergency department.
== END 2021-06-04 21:15 | disposition home or self-care (01) ==
LOC: JD.ED 17:42
DX: J06.9 Acute upper respiratory infection, unspecified (principal); J45.909 Unspecified asthma, uncomplicated; F17.210 Nicotine dependence, cigarettes, uncomplicated; Z88.8 Allergy status to other drugs, medicaments and biological substances; Z20.822 Contact with and (suspected) exposure to COVID-19
CPT/HCPCS: 99283; U0002

== ENCOUNTER 2023-07-07 11:27 | Emergency (ER) | payer SELFPAY ==
[2023-07-07 12:41] LABS: BASOPHILS PERCENT AUTO 0.3 % (0.0-1.0); EOSINOPHILS ABSOLUTE AUTO 0.1 K/mm3 (0.0-0.4); EOSINOPHILS PERCENT AUTO 1.1 % (0.0-6.0); HEMATOCRIT 39.4 % (37.0-47.0); HEMOGLOBIN 13.2 gm/dl (12.0-16.0); IMMATURE GRAN ABSOLUTE AUTO 0.04 K/mm3 (0.00-0.05); IMMATURE GRAN PERCENT AUTO 0.3 % (0.0-0.4); LYMPHOCYTES ABSOLUTE AUTO 2.5 K/mm3 (1.0-4.8); LYMPHOCYTES PERCENT AUTO 20.5 % (24.0-44.0); MEAN CORPUSCULAR HEMOGLOBIN 29.5 pg (28.0-32.0); MEAN CORPUSCULAR HGB CONC 33.5 g/dl (32.0-36.0); MEAN CORPUSCULAR VOLUME 88.1 fl (83.0-99.0); MEAN PLATELET VOLUME 8.9 fl (9.4-12.3); MONOCYTES ABSOLUTE AUTO 0.8 K/mm3 (0.0-0.8); MONOCYTES PERCENT AUTO 6.9 % (0.0-8.0); NEUTROPHILS ABSOLUTE AUTO 8.5 K/mm3 (1.8-7.7); NEUTROPHILS PERCENT AUTO 70.9 % (41.0-71.0); PLATELET COUNT,PLT 306 K/mm3 (150-400); RED BLOOD CELL COUNT 4.47 M/mm3 (4.10-5.30); WHITE BLOOD CELL COUNT,WBC 11.98 K/mm3 (3.9-11.3)
[2023-07-07 12:44] LABS: INR 1.08; PROTHROMBIN TIME 11.5 SECONDS (9.7-12.0)
[2023-07-07 12:45] LABS: D-DIMER QUANTITATIVE 0.28 mg/L (0.19-0.50)
[2023-07-07 12:49] LABS: ALBUMIN 3.8 g/dl (3.4-5.0); ANION GAP 14.6 (5-15); BILIRUBIN TOTAL 0.4 mg/dL (0.2-1.0); BUN/CREATININE RATIO 16.7 (14-18); CREATININE 0.6 mg/dL (0.55-1.02); EST CRCL DRUG DOSING (CG) 123.63 mL/min; POTASSIUM,K 3.6 mEq/L (3.5-5.1); PROTEIN TOTAL,TP 7.5 g/dl (6.4-8.2)
[2023-07-07] MEDS ORDERED: Morphine 2 MG/ML SYRINGE IVPUSH ONE (13:35)
[2023-07-07] MEDS ORDERED: Ketorolac 15 MG/ML SDV IVPUSH ONE (13:38)
[2023-07-07 15:33] VITALS: BP 100/60; PULSE 65
== END 2023-07-07 15:11 | disposition home or self-care (01) ==
LOC: JD.ED 11:27
DX: R07.81 Pleurodynia (principal); R07.2 Precordial pain; J45.909 Unspecified asthma, uncomplicated; Z86.16 Personal history of COVID-19; Z88.8 Allergy status to other drugs, medicaments and biological substances
CPT/HCPCS: 36415; 71045; 80053; 84484; 85025; 85379; 85610; 85730; 93005; 96374; 99285; J1885; 93010; 99284

== ENCOUNTER 2024-06-13 11:14 | Emergency (ER) | payer SELFPAY ==
[2024-06-13 12:25] LABS: BASOPHILS ABSOLUTE AUTO 0.1 K/mm3 (0.0-0.2); BASOPHILS PERCENT AUTO 0.6 % (0.0-1.0); EOSINOPHILS ABSOLUTE AUTO 0.3 K/mm3 (0.0-0.4); EOSINOPHILS PERCENT AUTO 2.5 % (0.0-6.0); HEMATOCRIT 37.3 % (37.0-47.0); HEMOGLOBIN 12.2 gm/dl (12.0-16.0); IMMATURE GRAN ABSOLUTE AUTO 0.03 K/mm3 (0.00-0.05); IMMATURE GRAN PERCENT AUTO 0.3 % (0.0-0.4); LYMPHOCYTES ABSOLUTE AUTO 3.7 K/mm3 (1.0-4.8); LYMPHOCYTES PERCENT AUTO 35.9 % (24.0-44.0); MEAN CORPUSCULAR HGB CONC 32.7 g/dl (32.0-36.0); MEAN CORPUSCULAR VOLUME 88.8 fl (83.0-99.0); MEAN PLATELET VOLUME 9.1 fl (9.4-12.3); MONOCYTES ABSOLUTE AUTO 0.8 K/mm3 (0.0-0.8); MONOCYTES PERCENT AUTO 7.5 % (0.0-8.0); NEUTROPHILS ABSOLUTE AUTO 5.4 K/mm3 (1.8-7.7); NEUTROPHILS PERCENT AUTO 53.2 % (41.0-71.0); PLATELET COUNT,PLT 272 K/mm3 (150-400); WHITE BLOOD CELL COUNT,WBC 10.18 K/mm3 (3.9-11.3)
[2024-06-13] MEDS: Iopamidol 755 Mg/ML 100 ML Bottle IVPUSH ONE (12:26)
[2024-06-13 12:49] LABS: ALBUMIN 3.5 g/dl (3.4-5.0); ANION GAP 11.6 (5-15); BILIRUBIN TOTAL 0.2 mg/dL (0.2-1.0); C-REACTIVE PROTEIN 0.75 mg/dL (<0.30); CALCIUM 9.1 mg/dL (8.5-10.1); CREATININE 0.6 mg/dL (0.55-1.02); EST CRCL DRUG DOSING (CG) 122.42 mL/min; POTASSIUM,K 3.6 mEq/L (3.5-5.1); PROTEIN TOTAL,TP 6.9 g/dl (6.4-8.2)
[2024-06-13 13:05] LABS: APPEARANCE,URINE SLT CLOUDY (Clear); BILIRUBIN,URINE NEGATIVE (Negative); COLOR,URINE LIGHT YELLOW (Yellow); GLUCOSE,URINE NEGATIVE (Negative); KETONES,URINE NEGATIVE (Negative); LEUKOCYTE ESTERASE,URINE NEGATIVE (Negative); NITRITE,URINE NEGATIVE (Negative); OCCULT BLOOD,URINE 1+ (Negative); PROTEIN,URINE NEGATIVE (Negative); UROBILINOGEN,URINE 0.2 (0.2-1.0)
[2024-06-13 13:13] LABS: BACTERIA,URINE MODERATE /hpf (FEW); MUCUS,URINE FEW /hpf (FEW)
[2024-06-13 16:00] VITALS: BP 92/64; PULSE 55
== END 2024-06-13 14:21 | disposition home or self-care (01) ==
LOC: JD.ED 11:14
DX: R10.31 Right lower quadrant pain (principal); F17.210 Nicotine dependence, cigarettes, uncomplicated; Z88.8 Allergy status to other drugs, medicaments and biological substances; Z79.899 Other long term (current) drug therapy
CPT/HCPCS: 36415; 74177; 80053; 81001; 81025; 83690; 85025; 86140; 99284; Q9967